=== PATIENT | female | born 1940 | race Caucasian/White ===

== ENCOUNTER 2016-11-19 07:05 | Day surgery (SDC) | payer MEDICARE, BC ==
[~2016-11-19 07:05] MED LIST: Buffered Lidocaine 1% SYR 3ML* 3 ML/SYR SYRINGE INTRADERM ONE; Buffered Lidocaine 1% SYRIN* 5 ML/SYR SYRINGE ONE; Clindamycin 900 MG IVPREMIX(* 900 MG/50 ML SDV IV ONE; Dexamethasone IV* 4 MG/ML 1 ML (4 MG) IV SLOW PU ONE; Dexamethasone IV* 4 MG/ML 1 ML (4 MG) ONE; EPINEPHrine AMP 1 MG/ML ONE; Famotidine IV* 10 MG/ML 2 ML (20 mg) IV ONE; Famotidine IV* 10 MG/ML 2 ML (20 mg) ONE
[2016-11-19] MEDS ORDERED: Propofol* 10 MG/ML 20 ML BTL IV PUSH ONE (08:19)
[2016-11-19] MEDS ORDERED: Atracurium* 10 MG/ML 10 ML VIAL ONE (08:19)
[2016-11-19] MEDS ORDERED: fentaNYL* 50 MCG/ML 2 ML VIAL (100 MCG VIAL) ONE (08:19)
[2016-11-19] MEDS ORDERED: Midazolam* 1 MG/ML 2 ML VIAL (2 MG) ONE (08:19)
[2016-11-19] MEDS ORDERED: Ondansetron INJ* 2 MG/ML VIAL ONE (08:19)
[2016-11-19] MEDS ORDERED: EPHEDrine (Pressors)* 50 MG/ML VIAL ONE (08:20)
[2016-11-19] MEDS ORDERED: Phenylephrine IV* 40 MCG/ML 10 ML SYRINGE ONE (08:20)
[2016-11-19] MEDS ORDERED: ROPIVACAINE 5 MG/ML 30 ML BTL (0.5%) ONE (08:20)
[2016-11-19] MEDS ORDERED: Lidocaine 2% PF * 5 ML VIAL ONE (08:43)
[2016-11-19] MEDS ORDERED: Ondansetron INJ* 2 MG/ML VIAL IV PRN (10:17)
[2016-11-19] MEDS ORDERED: fentaNYL* 50 MCG/ML 2 ML VIAL (100 MCG VIAL) IV PRN (10:17)
[2016-11-19] MEDS ORDERED: oxyCODONE/Acetamin 5/325 MG* TAB PO PRN (10:17)
[2016-11-19] MEDS ORDERED: Desflurane* 240 ML INH ONE (10:22)
[2016-11-19] MEDS ORDERED: Glycopyrrolate IV* 0.2 MG/ML 1 ML VIAL ONE (10:35)
[2016-11-19] MEDS ORDERED: Atropine 1MG/ML INJ* 1 ML VIAL ONE (10:35)
--- NOTE | 2016-11-19 13:09 | PN ---
Hospitalist Progress Note Brief consult note, full note to follow. Called to see patient due to bigeminy on tele. 76 yo F with hx of HTN, mitral valve prolapse, MDS, OA s/p rotator cuff repair found to have what was felt to be bigeminy on tele. Patient reports some shoulder numbness but otherwise feels well. No chest pain, palpitations, SOB. On exam, mild bradycardia, occasional ectopic beat but mostly normal rhythm, lungs CTA in anterior liu, abd soft, NTND, BS+, no LE edema. EKG shows sinus bradycardia with occasional PVCs. No further work-up needed at this time, patient is asymptomatic. Reports she has had an echo in the past, can f/u with cardiology to consider if she should have another to reassess mitral valve and other cardiac structures. Thank you for this consult.
[2016-11-19 15:15] VITALS: BP 111/51
--- NOTE | 2016-11-21 17:07 | OP ---
DATE OF OPERATION: 11/19/16 - [facility] DATE OF : 44 SURGEON: Saul Lou MD MARKETING DIRECTOR ASSISTED LIVING: ROD Evans ANESTHESIOLOGIST: Naseem Roy MD ANESTHESIA: General anesthesia, regional interscalene block anesthesia. PRE-OP DIAGNOSES: 1. Right shoulder rotator cuff tear, full-thickness, supraspinatus, infraspinatus. 2. Right shoulder subacromial impingement. 3. Right shoulder acromioclavicular joint arthritis. 4. Right shoulder possible biceps tendinosis. 5. Right shoulder mild glenohumeral joint arthritis. POST-OP DIAGNOSES: 1. Right shoulder rotator cuff tear, full-thickness, supraspinatus, infraspinatus. 2. Right shoulder subacromial impingement. 3. Right shoulder acromioclavicular joint arthritis. 4. Right shoulder biceps tendinosis. 5. Right shoulder mild glenohumeral joint osteoarthritis. OPERATIVE PROCEDURES: 1. Right shoulder arthroscopic rotator cuff repair, supraspinatus, infraspinatus, single row. 2. Right shoulder arthroscopic subacromial decompression. 3. Right shoulder arthroscopic distal clavicle resection. 4. Right shoulder arthroscopic release of biceps tendon. 5. Right shoulder arthroscopic limited debridement, including rotator interval tissue, biceps tissue and superior labrum. IV FLUIDS: See Anesthesia note. ESTIMATED BLOOD LOSS: Minimal. COMPLICATIONS: None. SPECIMEN: None. IMPLANTS: Healix 5.5 mm; Mitek Allen and Allen suture anchors x2. One suture anchor was double loaded and the other was triple loaded. 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 The patient's right shoulder hurts, so that she could not play pickleball. She was even having some right shoulder pain with swimming, although was able to continue swimming. She had nighttime pain disrupting her sleep. I treated the patient initially with a subacromial cortisone injection, which helped her symptoms of pain partially. The patient was also taking Tylenol Extra Strength for a while. Her primary care physician prescribed her Tylenol With Codeine, but that led to constipation, so she stopped taking that. The patient did physical therapy for 3 months without full relief of her symptoms. The patient had a history of a right total hip arthroplasty; mitral valve prolapse; myelodysplasia syndrome, a type of preleukemia; and diverticulosis with a history of excision of partial colon. When I first met the patient in clinic, she had been referred by a partner already having had an MRI performed. The MRI demonstrated full-thickness, full- width tears of the supra and infraspinatus, but retraction was just lateral to the apex. Fatty infiltration was significant, but I thought just less than 50% of the area of these two muscles on sagittal slices. The patient also had some degeneration on x-ray and MRI of the glenohumeral joint with the tiniest of osteophyte in the glenohumeral joint visible on MRI, but not x-ray and some trace glenohumeral joint narrowing on the x-ray as well as some partial thickness articular cartilage wear on MRI. Because the patient had retained strength with stress testing of the supraspinatus and infraspinatus when I first met her, and also because of her age, I made sure to fully attempt nonoperative management in this patient despite the full-thickness, full-width retracted tears. The patient responded insufficiently to nonoperative management. Especially, because of the patient's age, I shared with her my rotator cuff protocol to allow the patient to understand the intensity and the duration of the recovery required from a rotator cuff repair surgery. I e-mailed that protocol to her and she looked through it. I also told her that re-tears are more likely in an older population of rotator cuff repairs. In terms of timing of return to activities of daily living, I told her 3 months until she would use that right arm normally with activities of daily living around the house without heavy lifting. I told her 6 months until she could swim and 8 months for return to pickleball. The patient was interested in moving forward with surgery. She is very much aware of the risk of surgery, spontaneously mentioning that the worst risk of surgery or potential complications would certainly be . So, I felt comfortable that the patient understood the benefits, risks and potential complications of surgery. The patient is thin and well-muscled on exam. Her right shoulder range of motion was excellent, 180 degrees of forward flexion, 100 degrees of external and 90 degrees of internal range of motion. Positive Neer's and Rodrigez'. Pain and mild weakness with supraspinatus and infraspinatus stress testing on exam. Positive AC joint bicipital groove tenderness to palpation and mild pain with Speed's and Martindale's stress testing. Her x-rays preoperatively demonstrated an acromial humeral distance of 8.4 mm with what I thought was some trace elevation, and incongruity of the humeral head versus the glenoid. Much AC joint narrowing was present, but trace and glenohumeral joint narrowing was also present. An MRI done on 08/26/16, demonstrated full-thickness, full-width tears of the supra and infraspinatus. While there appeared to be some tissue lateral to the apex, it seemed as if some of this rotator cuff tissue was retracted further, possibly to the level of the glenoid or more medial. Fatty infiltration, I believe, to be just less than 50% of those muscles. Cartilage was still present in the glenohumeral joint, but there was a small osteophyte visible in the glenohumeral joint. Significant biceps tendinopathy was appreciated on MRI. DESCRIPTION OF PROCEDURE: Preoperative written consent was obtained. Operative extremity was marked in preoperative holding. Anesthesia performed an interscalene block in preoperative holding. The patient was taken back to the operating room and placed in supine on the operating room table. The patient was sedated and intubated. The patient was turned to the lateral decubitus position with the right side up. A chest roll was placed. All bony prominences padded. Santos bag was inflated. The right arm was placed in traction, approximately 15 degrees of forward flexion and 35 degrees of abduction. I used only 8 pounds of traction on her because of her small size. I prepped and draped right shoulder. Surgical timeout was performed. I placed a spinal needle into the glenohumeral joint from posterior. I infused 15 cc of normal saline. I then established posterior glenohumeral joint portal using standard technique. I entered arthroscope into the glenohumeral joint. I did diagnostic arthroscope. There were no unstable cartilage lesions, but there was clearly some grade 1 and 2 changes in the articular cartilage of both the humeral head and the glenoid, diffusely. The biceps was incredibly thickened and a tendinotic, with fraying throughout its length intra-articular. No loose bodies were encountered. A large rotator cuff tear of the supra and infraspinatus was visualized. I established an anterior glenohumeral joint portal under direct visualization. I entered arthroscopic shaver and used this to debride some of the biceps to better visualize the biceps. I also debrided some rotator interval inflamed synovium. Visualized subscapularis to be intact and not torn. I then proceeded to cut the biceps, just at its origin along the superior labrum, using a shaver and then VAPR. It was rather thickened to just use the arthroscopic scissors. I removed instruments and fluid from the glenohumeral joint. I entered subacromial space from posterior with the arthroscope and anterior with a plastic 5-mm disposable cannula with the irrigation hooked up to it. I established a lateral subacromial portal under direct visualization. I entered a shaver from lateral and debrided the bursitis in the subacromial space. Paid particular attention to the gutters. Visualized well the coracoacromial ligament, which I made sure to respect and not cut essentially any of during the procedure. This is because of concerns about the future risk of humeral head escape if the rotator cuff tear repair fails. I debrided the undersurface of the acromion with the VAPR. I then did a subacromial decompression with an arthroscopic mandi. Given her slight small size and age, I was very unaggressive with the subacromial decompression. I took perhaps only a 2-mm of lateral and anterior acromion, as much to open up additional spaces for a PRP like effect to improve healing of a rotator cuff repair. I recognized that there would be spurs at the acromion and distal clavicle to take later in the case. I next focused on the rotator cuff tear. I prepared the footprint with an arthroscopic shaver followed by an arthroscopic mandi. I had a light hand, purposely not debriding a much with the arthroscopic mandi in an older patient. I then evaluated the rotator cuff itself. As though there was a full-width tear of the supraspinatus that also encompassed much of the infraspinatus. It appeared crescent-shaped at first with the rotator cuff not retracted significantly. However, it was clear that this first layer I encountered was only the superior most part of the rotator cuff and that there had been an intralaminar split and that significant amount of rotator cuff tissue had retracted significantly. In fact, it had retracted to the level of the glenoid. I then created a new portal, posterolateral, that I did much of my viewing through with the arthroscope during the case. I spent much time during the rotator cuff repair either viewing through the posterolateral or lateral portal. I established an anterolateral portal under direct visualization. This was nicely in line with the tear itself. I then pulled the inferior lamina of the rotator cuff out to length. I did reach the footprints comfortably without excessive strain. I then entered a Tej wire passer from my posterior portal and I used it to pass a FiberWire #2 stitch through the inferior lamina of the rotator cuff tissue. I used this as a traction stitch, which my interior design assistant pulled traction on when I placed every single bite of stitch through the rotator cuff tendon later, to make sure that both the inferior and the superior laminas of the rotator cuff tendon were at the appropriate length- tension relationship. I next placed a 7-mm plastic Mitek cannula through my anterolateral portal. I was going to pass the Expressew suture passer through this portal. My tear still appeared crescent shaped and so my plan was for a single or a double row repair. I next placed a double-loaded suture anchor in the anterior section of the rotator cuff footprint, along its medial aspect. I placed in this location because I knew that this is where the best bone and best purchase for the anchor would be. I punched with the punched with the punch appropriate for the 5.5-mm anchor. I got good bite. I then used an Expressew to pass the sutures from this double-loaded anchor and I did not yet tie my horizontal mattress stitches. I docked those sutures anteriorly. I then placed another anchor, more posterior along the medial aspect of the footprint. With this anchor, I used a triple-loaded anchor. I also decided to use the 4.5-mm punch for a 5.5-mm anchor, just to be safe. Again, I got good bite with this second anchor. I used the Expressew to pass horizontal mattress stitches, but did not yet tie them. With the final stitch, I used a Tej suture passer from posterior to pass the suture through the most posterior part of the rotator cuff involved in the tear and I made that a simple stitch. I next tied all my knots. The first 4 stitches were horizontal mattress and the fifth knot was a simple stitch. I next probed my repair. It appeared excellent with good spot welding along the length of the repair. There was a tiny bits of fish-mouth, perhaps a two-thirds of the way along the repair from the anterior to posterior. Given my desire for any additional fixation to help with this repair, I next attempted a lateral row. I loaded 4 sutures into a lateral row anchor. I then used the 4.5-mm punch laterally. The punch went in easily with just my hand pushing it. No mallet needed. This made me think that the bone was exceptionally soft laterally. I tried one more rotation further distal. This was even softer. This was not entirely surprising as my preoperative review of the MRI had showed a cyst about the lateral rotator cuff footprint. However, that cyst did not run the length of the bone from anterior to posterior, I am somewhat surprised, but this is likely explained by the patient's age. Because of the soft bone laterally, I did not want to insert a lateral row anchor that might pull out. Therefore, I just cut the sutures of the medial row unless this is single row repair. Moving the humerus and viewing the repair from both posterolateral and lateral, it appeared as though we had a nice rotator cuff repair. I then moved my arthroscope to the posterior portal and addressed the AC joint. There were osteophytes on the acromial and clavicular side of the AC joint. I first debrided this area with a VAPR and a shaver to remove the bursitic tissue. Then I used the shaver from lateral and then from anterior to debride the undersurface of the acromion anteromedially as well as I removed 8 mm of the distal clavicle. I viewed all 4 quadrants of the distal clavicle and was satisfied with adequate decompression. Removed melvin and fluid from subacromial space. Closed skin incisions with [id number], 12 and 16 stitches using nylon 4-0 suture. Xeroform, 4x4s, ABDs, foam tape. Abduction pillow and sling applied and a cooling unit. The patient was turned to the supine position, awakened and extubated. The patient was brought to the recovery room. DISPOSITION: In the recovery room, the patient was noted on telemetry to have some occasional ventricular driven beats. At times this was a ventricular bigeminy, at times there were perhaps 3 to 4 beats in a row ventricular in origin. The patient was asymptomatic with no chest pain, shortness of breath or sensation of heart palpitations. I called a hospitalist consult. The patient had an EKG and the hospitalist physician was comfortable with the patient's discharge home without any further intervention. The assumption was that this is the patient's baseline. The patient will follow up with Cardiology as an outpatient. The patient and her were spoken to PACU. She was given Percocet for pain control and aspirin 325 mg p.o. b.i.d. x2 weeks for DVT prophylaxis. The patient will follow up with me 10 to 14 days postoperative and we will hold off on physical therapy until after that visit, but will come out of her sling several times a day to move her elbow, wrist and fingers. [id number]/CPS #: [id number] MTDD
== END 2016-11-19 15:45 | disposition home or self-care (01) ==
LOC: OR 07:05
PROVIDERS: ATTEND Orthopaedic Surgery
DX: M75.101 Unspecified rotator cuff tear or rupture of right shoulder, not specified as traumatic (principal); M19.011 Primary osteoarthritis, right shoulder; M75.41 Impingement syndrome of right shoulder; M75.21 Bicipital tendinitis, right shoulder; I34.1 Nonrheumatic mitral (valve) prolapse; I10 Essential (primary) hypertension; D46.9 Myelodysplastic syndrome, unspecified
CPT/HCPCS: 93005; A9270-GY; J0171; J0461; J1100; J2250; J2405; J2704; J2795; J3010

== ENCOUNTER 2018-05-06 11:04 | Emergency (ER) | payer MEDICARE, BC ==
--- OUTSIDE RECORDS SUMMARY | 2018-05-06 11:31 | XMS REPORT | Continuity of Care Document ---
:1940 External Reference #:[id number] Author Name Abdiel Ricardo Address [address] [place] [id number] Care Team Providers Name Role Phone HCP/LW on file Primary Care Physician Unavailable Payers Type Date Identification Numbers Payment Provider Subscriber Effective: Policy Number: [id number] [place] [employer] Courtney Brooks 2007 Services PayID: [id number] [address] [place] [address] Effective: 2018 Policy Number: [place] Ind/Ppo/Hmo/Pos Courtney Brooks [id number] PayID: [id number] [address] [address] [place] [address] Advance Directives Description No Information Available Problems Date Description Provider Status Onset: 06/08/2017 Myelodysplastic syndrome (clinical) Garland Funez M.D. Active Onset: 06/08/2017 Spinal stenosis in cervical region Garland Funez M.D. Active Onset: 06/17/2017 Chronic kidney disease stage 3 Garland Funez M.D. Active Onset: 06/17/2017 Essential hypertension Garland Funez M.D. Active Onset: 06/17/2017 Generalized anxiety disorder Garland Funez M.D. 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 Tobacco Use Reviewed: 12/14/16 Never Smoked Cigarettes Smoking Status Reviewed: 04/27/18 Never Smoked Cigarettes ETOH Use 12/14/2016 Current Alcohol Use: "a couple glasses a Daily day" of wine (total ~16oz/day) and has been doing this for a long time Tobacco Use Start: Unknown Patient has never smoked Exercise Type/Frequency 12/14/2016 Exercises regularly incl swimming, pickle ball, lots of walking, gardening Age [address][age] [place] 21 Years Old Allergies, Adverse Reactions, Alerts Date Description Reaction Status Severity Comments 11/15/2016 Cardizem Active photo dermatitis 11/15/2016 Ampicillin Active itching 11/15/2016 Tramadol Active itching 11/15/2016 Vancomycin Active itching 03/21/2018 Keflex Active itching 03/21/2018 Doxycycline Active blisters 04/27/2018 Furosemide Itching, rash Active Moderate Medications Medication Date Status Form Strength Qnty SIG Indications Ordering Provider Walker With A Misc 1units I48.92 Silcoff, Platform 2018 Yassine Haque Amiodarone HCL 04/23/ Active Tablets 200mg 1/2 tablet I48.92 Dee Dee, 2017 by mouth Garland 2x/day for M.D. heart rhythm control Warfarin Sodium 04/12/ Active Tablets 1mg as directed Unknown 2017 Antioxidant 04/12/ Active Capsules one cap po Unknown 2017 daily Metoprolol 04/12/ Active Tablets 25mg take 1/2 Unknown Tartrate 2018 tablet by mouth twice a day Sertraline HCL 02/14/ Active Tablets 100mg 90tabs 1 by mouth F41.1 Dee Dee, 2017 every day soha Haque M.DLaura Timolol Maleate 02/10/ Active GFS 0.5% 1 drop to [place] Ophthalmic Gel 2018 the Left , Forming eye daily Luz Elena connor MD Latanoprost 10/25/ Active Solution 0.005% Instill 1 Unknown 2017 Drop In Each Eye AT Bedtime Amiodarone HCL 04/23/ Hx Tablets 200mg 200 mg by I48.92 Unknown 2018 - mouth twice 04/24/ daily 2018 Hydroxyzine HCL 04/15/ Hx Tablets 25mg 45tabs 1-2 tabs by L50.9 Dee Dee , 2017 - mouth q-6 Garland, 10/24/ hours for M.D. 2018 rash, can cause drowsiness. Amiodarone HCL 04/12/ Hx Tablets 400mg take 1 tab I48.92 Unknown 2018 - po 3x/day 04/23/ for 3 days. 2018 Then 400 mg 2x/day for 7 days, then 1/2 tab twice daily Furosemide 04/12/ Hx Tablets 40mg one tab Unknown 2018 - daily for 5 2017 Potassium /10/ Hx Tablets ER 20Meq one tab po Unknown Chloride Jerrica 2018 - x 5 days ER 2017 Aspirin Adult 04/12/ Hx Tablets DR 81mg 1 by mouth Unknown Low Dose 2018 - every day 2017 Vitamin B 03/26/ Hx Capsule 1 by mouth Unknown Complex 2018 - once daily 2017 Metoprolol 03/13/ Hx Tablets ER 25mg 25mg qd to Davidenko Succinate ER 2018 - 24HR lower pulse , Darrel 2017 Eliquis 03/13/ Hx Tablets 5mg bid Davidenko 2018 - , Darrel 2017 Cephalexin 03/12/ Hx Capsules 500mg 28caps 1 capsule L03.115 Unknown 2018 - by mouth 03/19/ every 6 2018 hours for skin infection on leg Triamcinolone 02/20/ Hx Cream 0.1% 80gm apply to R21 Dee Dee Acetonide 2018 - affected Garland 03/20/ areas on M.D. 2018 arms and legs 2x/day for 2weeks, then use as needed only needed L29.9 Sertraline HCL 02/10/2018 - Hx Tablets 50mg 2 by mouth F41.1 Dee Dee, 02/14/2018 every day; soha Haque mood M.D. PT For R Leg Pain 02/08/2018 - Hx please M79.604 Dee Dee, 04/14/2018 evaluate Garland, and treat M.D. Benicar HCT 12/15/2017 - Hx Tablets 40-25mg take one I10 Unknown 04/14/2018 tablet by mouth every day for high blood pressure Llysene (OTC) 12/15/2017 - Hx one po Unknown 03/12/2018 daily in summer to prevent cold sores Benadryl (OTC) 12/15/2017 - Hx one po Unknown 03/20/2018 every other day prn for itching B Complex 06/08/2017 - Hx Tablets 1 by mouth G47.62 Silcocharly, 03/20/2018 once daily Garland, for muscle M.D. cramps; stop after a couple of months if not helpful Acetaminophen 06/08/2017 - Hx Tablets 500mg 2 by mouth M25.50 Silcocharly, Extra Strength 03/12/2018 up to Garland, 4x/day as M.D. needed for pain Actonel 12/13/2016 - Hx 1 weekly M85.80 Unknown 12/14/2016 Multivitamin 11/14/2016 - Hx Tablets 1 capful Unknown Adult 04/14/2018 daily [place] 3 11/14/2016 - Hx Capsules daily Unknown 04/14/2018 Opc-3 11/14/2016 - Hx 1 capful Unknown 04/14/2018 daily Tylenol Extra 11/14/2016 - Hx Tablets 500mg bid Unknown Strength 06/16/2017 Biocal 11/14/2016 - Hx Capsules daily Unknown 04/14/2018 Risedronate 10/22/2016 - Hx Tablets 35mg 1 per week M85.88 Unknown Sodium 12/14/2016 as directed Sertraline HCL 09/30/2016 - Hx Tablets 50mg 90ta 1 tablet by F41.1 Dee Dee, 02/10/2018 bs mouth Garland, daily; for M.D. mood Benicar HCT 03/19/2016 - Hx Tablets 20-12.5m 1 tablet po I10 Unknown 12/15/2017 g daily Metoprolol - Hx Tablets 25mg Unknown Tartrate 04/14/2018 Medications Administered in Office Medication Date Status Form Strength Qnty SIG Indications Ordering Provider injection, Administered Injection mathew Funez, 10 mg 018 Yassine Haque Immunizations CPT Code Status Date Vaccine Lot # [id number] Given 03/13/2018 Influenza Vaccine Split Virus Preservative Free Im [id number] Use [id number] Given 03/11/2018 Adacel or Boostrix, TDaP 00636 Given 06/08/2017 Pneumococcal Immunization [id number] 16423 Given 04/07/2017 Influenza Virus Vaccine, Quadrivalent, Split, [id number] Preservative Free 51915 Given 05/15/2015 Prevnar 13 85437 Given 11/05/2009 Zostavax [id number] Given 05/05/2009 Adacel or Boostrix, TDaP Vital Signs Date Vital Result Comment 04/27/2018 5:03pm BP Systolic 124 mmHg BP Diastolic 66 mmHg Heart Rate 63 /min O2 % BldC Oximetry 92 % then 87,88 Weight 123.00 lb sneakers, sweatshirt on, (at home 116) 04/19/2018 4:14pm BP Systolic 116 mmHg BP Diastolic 70 mmHg Respiratory Rate 14 /min not laboured 04/15/2018 10:20am BP Systolic 120 mmHg BP Diastolic 80 mmHg Weight 116.00 lb with sneakers 03/27/2018 3:08pm BP Systolic 108 mmHg BP Diastolic 60 mmHg Body Temperature 97.9 F 03/21/2018 11:09am BP Systolic 122 mmHg BP Diastolic 62 mmHg 03/13/2018 9:39am BP Systolic 120 mmHg BP Diastolic 78 mmHg Body Temperature 98.0 F Weight 113.00 lb w/sneakers 02/20/2018 5:23pm BP Systolic 118 mmHg BP Diastolic 49 mmHg Heart Rate 48 /min Body Temperature 98.1 F 02/14/2018 2:19pm BP Systolic 107 mmHg BP Diastolic 47 mmHg Heart Rate 52 /min O2 % BldC Oximetry 97 % Weight 110.00 lb w/shoes 12/16/2017 1:08pm BP Systolic 118 mmHg BP Diastolic 60 mmHg Height 63.5 inches 5'3.50" with sneakers Weight 112.00 lb with sneakers BMI (Body Mass Index) 19.5 kg/m2 06/17/2017 1:29pm BP Systolic 106 mmHg BP Diastolic 68 mmHg 06/08/2017 2:19pm BP Systolic 106 mmHg BP Diastolic 58 mmHg Heart Rate 68 /min reg w/ frequent berto beats Height 62.25 inches 5'2.25" Weight 107.00 lb BMI (Body Mass Index) 19.4 kg/m2 12/14/2016 11:53am BP Systolic 104 mmHg BP Diastolic 66 mmHg Height 63.75 inches 5'3.75" w/shoes Weight 103.00 lb with shoes BMI (Body Mass Index) 17.8 kg/m2 11/15/2016 4:23pm BP Systolic 108 mmHg BP Diastolic 56 mmHg Height 62 inches 5'2" Weight 108.00 lb BMI (Body Mass Index) 19.8 kg/m2 Results Test Date Facility Test Result H/L Range Note Xray 04/27/2018 [facility] X-Ray, Chest, 2 <pending> Views Protime W/ 04/24/2018 [facility]International 2.2 Inr(Add V58.61) Normalized Protime W/ 04/21/2018 [facility]International 1.8 Inr(Add V58.61) Normalized Protime W/ 04/17/2018 [facility]International 1.6 Inr(Add V58.61) Normalized Protime W/ 04/14/2018 [facility] #Prothrombin Time <pending> Inr(Add V58.61) #International Normalized 2.4 Basic Metabolic Panel 03/27/2018 [facility] [place] Sodium 132 mmol/L Low 135 -145 [phone] Chloride 98 mmol/L Low 101-111 Co2 Carbon Dioxide 27 mmol/L 22-32 Glucose 83 mg/dL 70-100 Blood Urea Nitrogen 19 mg/dL 6-24 Creatinine 0.85 mg/dL 0.51-0.95 BUN/Creatinine Ratio 22.4 High 8-20 Calcium 9.5 mg/dL 8.6-10.3 Egfr Non- 65.0 >60 Egfr 78.7 >60 1 Potassium 5.2 mmol/L High 3.5-5.0 Anion Gap 7 mmol/L 2-11 Laboratory test 03/21/2018 [facility] [place] Body Fluid None Seen None Seen 2 finding [phone] Crystals CBS W/Automated 03/11/2018 [facility]. White Blood 5.2 K/uL 3.1-10.7 3 Diff LABORATORY Count [phone] Red Blood Count 3.58 M/uL Low 3.90-5.40 Hemoglobin 11.9 gm/dL 11.6-15.8 Hematocrit 33.9 % Low 36.0-46.1 Mean Cell Volume 94.7 fl 80.9-99.0 Mean Corpuscular HGB 33.2 pg High 25.9-32.7 Mean Corpuscular HGB Conc 35.1 g/dL High 30.8-34.3 Platelet Count 228 K/uL 155-360 Red Cell Distri Width SD 41.7 fl 3-47 Red Cell Distri Width %CV 12.5 % 11.7-14.4 Mean Platelet Volume 9.9 fL 8.9-12.4 Neut% 73.3 % High 40.4-72.8 Lymph % 17.9 % Low 20.0-42.0 [place] % 6.9 % 4.3-13.2 Eo% 1.5 % 0.0-6.6 Bas% 0.4 % 0.0-1.1 Neut# 3.80 K/uL 1.8-7.0 Lymph # 0.93 K/uL Low 1.0-4.0 [place] # 0.36 K/uL 0.3-0.9 Eos # 0.08 K/uL 0.0-0.5 Baso # 0.02 K/uL 0.0-0.1 Comprehensive Metabolic 03/11/2018 [facility]. Glucose 97 mg/ dL 74-106 Panel LABORATORY [phone] BUN 15 mg/dL 7-18 Creatinine 0.8 mg/dL 0.6-1.3 Glom Filtration Rate, Estimate >60 mL/min >60 If >60 mL/min >60 4 BUN/Creat 18.7 ratio Sodium 127 mmol/L Low 136-145 Potassium 3.8 mmol/L 3.5-5.1 Chloride 92 mmol/L Low 98-107 Carbon Dioxide 28 mmol/L 21-32 Anion Gap 7 mEq/L Low 8-16 Calcium 8.9 mg/dL 8.5-10.1 Total Protein 7.5 g/dL 6.4-8.2 Albumin 4.3 g/dL 3.4-5.0 Globulin 3.2 g/dL 1.9-4.3 Alb/Glob 1.3 ratio Bilirubin,Total 0.7 mg/dL 0.2-1.0 Sgot/Ast 32 U/L 15-37 SGPT/Alt 27 U/L 12-78 Alkaline Phosphatase 77 U/L 45-117 Laboratory test 03/11/2018 [facility]. C-Reactive 34.1 High < 3.0 finding LABORATORY Protein,Quant mg/L [phone] Creatinine 02/14/2018 [facility] [place] Creatinine 0.83 0.51-0.9 [phone] mg/dL 5 Egfr Non- 67.0 >60 Egfr 81.1 >60 5 Basic Metabolic Panel 01/31/2018 [facility]. Glucose 94 mg/dL 74-106 6 LABORATORY [phone] BUN 34 mg/dL High 7-18 Creatinine 1.7 mg/dL High 0.6-1.3 Glom Filtration Rate, Estimate 31 mL/min >60 If 38 mL/min >60 7 BUN/Creat 20.0 ratio Sodium 136 mmol/L 136-145 Potassium 3.9 mmol/L 3.5-5.1 Chloride 100 mmol/L 98-107 Carbon Dioxide 26 mmol/L 21-32 Anion Gap 10 mEq/L 8-16 Calcium 8.3 mg/dL Low 8.5-10.1 CBC 01/31/2018 [facility] White Blood Count 5.1 K/uL 3.1- 10.7 LABORATORY [phone] Red Blood Count 3.21 M/uL Low 3.90-5.40 Hemoglobin 10.8 gm/dL Low 11.6-15.8 Hematocrit 31.8 % Low 36.0-46.1 Mean Cell Volume 99.1 fl High 80.9-99.0 Mean Corpuscular HGB 33.6 pg High 25.9-32.7 Mean Corpuscular HGB Conc 34.0 g/dL 30.8-34.3 Platelet Count 202 K/uL 155-360 Red Cell Distri Width %CV 12.6 % 11.7-14.4 Mean Platelet Volume 9.7 fL 8.9-12.4 Aot Request 01/31/2018 [facility] Aot Request Test(s) added 8 LABORATORY [phone] Tests to be added: LFT's Aot Request 01/31/2018 [facility] Aot Request Test(s) added 9 LABORATORY [phone] Tests to be added: troponin CBS W/Automated 01/30/2018 [facility] White Blood 3.2 K/uL 3.1-10.7 Diff LABORATORY Count [phone] Red Blood Count 4.01 M/uL 3.90-5.40 Hemoglobin 13.5 gm/dL 11.6-15.8 Hematocrit 38.8 % 36.0-46.1 Mean Cell Volume 96.8 fl 80.9-99.0 Mean Corpuscular HGB 33.7 pg High 25.9-32.7 Mean Corpuscular HGB Conc 34.8 g/dL High 30.8-34.3 Platelet Count 259 K/uL 155-360 Red Cell Distri Width SD 42.9 fl 3-47 Red Cell Distri Width %CV 12.5 % 11.7-14.4 Mean Platelet Volume 9.8 fL 8.9-12.4 Neut% 61.9 % 40.4-72.8 Lymph % 27.0 % 20.0-42.0 [place] % 6.8 % 4.3-13.2 Eo% 3.1 % 0.0-6.6 Bas% 1.2 % High 0.0-1.1 Neut# 1.99 K/uL 1.8-7.0 Lymph # 0.87 K/uL Low 1.0-4.0 [place] # 0.22 K/uL Low 0.3-0.9 Eos # 0.10 K/uL 0.0-0.5 Baso # 0.04 K/uL 0.0-0.1 Laboratory test 01/30/2018 [facility]. Troponin-I 0.030 ng/mL 10 finding LABORATORY [phone] Laboratory test 01/30/2018 [facility]. Act Partial > 150.0 High 23.4- 11 finding LABORATORY Thrombo Time seconds 35.0 [phone] Laboratory test 01/30/2018 [facility]. Troponin-I 0.044 ng/mL 12 finding LABORATORY [phone] CBS W/Automated 01/29/2018 [facility]. White Blood 4.4 K/uL 3.1-1 13 Diff LABORATORY Count 0.7 [phone] Red Blood Count 3.68 M/uL Low 3.90-5.40 Hemoglobin 12.4 gm/dL 11.6-15.8 Hematocrit 36.3 % 36.0-46.1 Mean Cell Volume 98.6 fl 80.9-99.0 Mean Corpuscular HGB 33.7 pg High 25.9-32.7 Mean Corpuscular HGB Conc 34.2 g/dL 30.8-34.3 Platelet Count 256 K/uL 155-360 Red Cell Distri Width SD 43.0 fl 3-47 Red Cell Distri Width %CV 12.5 % 11.7-14.4 Mean Platelet Volume 10.0 fL 8.9-12.4 Neut% 62.3 % 40.4-72.8 Lymph % 26.6 % 20.0-42.0 [place] % 6.8 % 4.3-13.2 Eo% 3.6 % 0.0-6.6 Bas% 0.7 % 0.0-1.1 Neut# 2.77 K/uL 1.8-7.0 Lymph # 1.18 K/uL 1.0-4.0 [place] # 0.30 K/uL 0.3-0.9 Eos # 0.16 K/uL 0.0-0.5 Baso # 0.03 K/uL 0.0-0.1 Aot Request 01/29/2018 [facility] Aot Request Test(s) added 14, 15 LABORATORY [phone] Tests to be added: Lipase Aot Request 01/29/2018 [facility] Aot Request Test(s) added 16, 17 LABORATORY [phone] Tests to be added: BNP, D-Dimer, CP <SEE NOTE> 18 Laboratory test 01/29/2018 [facility] Troponin-I 0.050 ng/mL 19 finding LABORATORY [phone] Hepatitis 01/29/2018 [facility] Hepatitis A Negative Negative Evaluation LABORATORY Antibody IgM [phone] HBsAg Screen [Ref Lab] Negative Negative Hepatitis B Core IgM Negative Negative HCV Signal/Cutoff ratio < 0.1 s/corat 0.0-0.9 20 Laboratory test 01/29/2018 [facility] D-Dimer, 3.35 ug/mL High 21 finding LABORATORY Quantitative [phone] Urine Micro 12/16/2017 In House [facility] WBC - Inhouse Ua RBC - Ua Casts - Ua Epi - Ua Other - Ua Glucose - Ua Bilirubin - Ua Ketones - Ua Specific O'Brien 1.010 Ua Blood - Ua PH 5.0 Ua Protein - Ua Urobilinogen - Ua Nitrite - Ua Leukocytes - Creatinine Clearance 12/07/2017 [facility] [place] Urine Collection Time 24 hr [phone] Urine Total Volume 1750 mL Urine Random Creatinine 45.68 mg/dL Creatinine 0.97 mg/dL High 0.51-0.95 Creatinine Clearance 57 mL/min Low 88-128 Pthi 06/13/2017 [facility] [place] Calcium (PTH Intact) 10.3 mg/dL 8.6-10.3 [phone] PTH Intact 2.0 pmol/L 1.3-9.3 Laboratory test 06/13/2017 [facility] [place] Vitamin D 69.6 ng/mL High 20- 50 finding [phone] Total 25(Oh) CBC Auto Diff 06/13/2017 [facility] [place] White Blood 3.6 10^3/uL 3.5- 10.8 [phone] Count Red Blood Count 3.57 10^6/uL Low 4.0-5.4 Hemoglobin 11.8 g/dL Low 12.0-16.0 Hematocrit 36 % 35-47 Mean Corpuscular Volume 100 fL High 80-97 Mean Corpuscular Hemoglobin 33 pg High 27-31 Mean Corpuscular HGB Conc 33 g/dL 31-36 Red Cell Distribution Width 13 % 10.5-15 Platelet Count 197 10^3/uL 150-450 Mean Platelet Volume 9 um3 7.4-10.4 Abs Neutrophils 2.5 10^3/uL 1.5-7.7 Abs Lymphocytes 0.9 10^3/uL Low 1.0-4.8 Abs Monocytes 0.2 10^3/uL 0-0.8 Abs Eosinophils 0.1 10^3/uL 0-0.6 Abs Basophils 0 10^3/uL 0-0.2 Abs Nucleated RBC 0.01 10^3/uL Granulocyte % 67.9 % 38-83 Lymphocyte % 23.8 % Low 25-47 Monocyte % 5.5 % 1-9 Eosinophil % 1.8 % 0-6 Basophil % 1.0 % 0-2 Nucleated Red Blood Cells % 0.2 Laboratory test finding 06/13/2017 [facility] [place] Phosphorus 4.5 mg/dL 2.5-5.0 [phone] Iron & Iron Binding 06/13/2017 [facility] [place] Iron 89 g/dL 50-212 Capacity [phone] Unsaturated Iron Binding 297 g/dL Total Iron Binding Capacity 386 g/dL 250-450 % Iron Saturation 23 % 15-55 Creatinine Clearance 06/13/2017 [facility] [place] Creatinine 1.14 mg/dL High 0.51-0.95 [phone] Urine Collection Time 24 Urine Total Volume 1300 mL Urine Random Creatinine 56.27 mg/dL Creatinine Clearance 45 mL/min Low 88-128 Basic Metabolic Panel 06/13/2017 [facility] [place] Sodium 138 mmol/L 133- 145 [phone] Potassium 5.0 mmol/L 3.5-5.0 Chloride 105 mmol/L 101-111 Co2 Carbon Dioxide 27 mmol/L 22-32 Anion Gap 6 mmol/L 2-11 Glucose 92 mg/dL 70-100 Blood Urea Nitrogen 28 mg/dL High 6-24 Creatinine 1.12 mg/dL High 0.51-0.95 BUN/Creatinine Ratio 25.0 High 8-20 Calcium 9.8 mg/dL 8.6-10.3 Egfr Non- 47.4 >60 Egfr 61.0 >60 22 1 Because ethnic data is not always readily available, this report includes an eGFR for both -Americans and non- Americans. The National Kidney Disease Education Program (NKDEP) does not endorse the use of the MDRD equation for patients that are not between the ages of 18 and 70, are , have extremes of body size, muscle mass, or nutritional status, or are non- or non-. According to the National Kidney Foundation, irrespective of diagnosis, the stage of the disease is based on the level of kidney function: Stage Description GFR(mL/min/1.73 m(2)) 1 Kidney damage with normal or decreased GFR 90 2 Kidney damage with mild decrease in GFR 60-89 3 Moderate decrease in GFR 30-59 4 Severe decrease in GFR 15-29 5 Kidney failure <15 (or dialysis) 2 [id number] What is the body fluid source?: Synovial (Joint) Fluid 3 LOWER R LEG SWOLLEN 4 Note: Persistent reduction for 3 months or more in an eGFR <60 mL/min/1.73 m2 defines CKD. Patients with eGFR values >/=60 mL/min/1.73 m2 may also have CKD if evidence of persistent proteinuria is present. The original MDRD equation for estimated GFR is not valid for patients less than 18 years of age. Additional information may be found at www.kdoqi.org. 5 Because ethnic data is not always readily available, this report includes an eGFR for both -Americans and non- Americans. The National Kidney Disease Education Program (NKDEP) does not endorse the use of the MDRD equation for patients that are not between the ages of 18 and 70, are , have extremes of body size, muscle mass, or nutritional status, or are non- or non-. According to the National Kidney Foundation, irrespective of diagnosis, the stage of the disease is based on the level of kidney function: Stage Description GFR(mL/min/1.73 m(2)) 1 Kidney damage with normal or decreased GFR 90 2 Kidney damage with mild decrease in GFR 60-89 3 Moderate decrease in GFR 30-59 4 Severe decrease in GFR 15-29 5 Kidney failure <15 (or dialysis) 6 CHEST PAIN 7 Note: Persistent reduction for 3 months or more in an eGFR <60 mL/min/1.73 m2 defines CKD. Patients with eGFR values >/=60 mL/min/1.73 m2 may also have CKD if evidence of persistent proteinuria is present. The original MDRD equation for estimated GFR is not valid for patients less than 18 years of age. Additional information may be found at www.kdoqi.org. 8 Tests: LFT's Instructions: 9 Tests: troponin Instructions: 10 0.0 - 0.045 ng/mL: Normal 0.046 - 0.5 ng/mL: Suggestive 0.6 - 1.5 ng/mL: Consistent 11 CALLED PTT TO JOSE ANTONIO Miller AT 1036 01/30/18 by LAB.ELR OKAY TO DRAW AT 740 AM WITH OTHER DRAWS Is patient on heparin protocol? Y Is patient on anticoagulants? None OK To Combine Draws Per RN 12 0.0 - 0.045 ng/mL: Normal 0.046 - 0.5 ng/mL: Suggestive 0.6 - 1.5 ng/mL: Consistent 13 SOB, LIGHT HEADED, WEAKNESS CHEST PAIN 14 SOB, LIGHT HEADED, WEAKNESS 15 Tests: Lipase Instructions: 16 CHEST PAIN 17 Tests: BNP, D-Dimer, CPK, CRP Instructions: 18 BNP, D-Dimer, CPK, CRP 19 0.0 - 0.045 ng/mL: Normal 0.046 - 0.5 ng/mL: Suggestive 0.6 - 1.5 ng/mL: Consistent 20 INFCE Result Units: s/co ratio Negative: < 0.8 Indeterminate: 0.8 - 0.9 Positive: > 0.9 The CDC recommends that a positive HCV antibody result be followed up with a HCV Nucleic Acid Amplification test (728325). Performed at: - [facility] [id number] Regional Account Executive: Emily Lackey MD, Phone: [phone] 21 <=0.49 ug/mL - Low likelihood of DIC, DVT or Pulmonary Embolism >0.49 ug/mL - Additional testing should be done to rule out DIC, DVT, or Pulmonary embolism as clinically indicated. ([facility] has established a 97.89% negative predictive value for thrombotic disease when a cutoff value of 0.5 ug/mL is used.) 22 Because ethnic data is not always readily available, this report includes an eGFR for both -Americans and non- Americans. The National Kidney Disease Education Program (NKDEP) does not endorse the use of the MDRD equation for patients that are not between the ages of 18 and 70, are , have extremes of body size, muscle mass, or nutritional status, or are non- or non-. According to the National Kidney Foundation, irrespective of diagnosis, the stage of the disease is based on the level of kidney function: Stage Description GFR(mL/min/1.73 m(2)) 1 Kidney damage with normal or decreased GFR 90 2 Kidney damage with mild decrease in GFR 60-89 3 Moderate decrease in GFR 30-59 4 Severe decrease in GFR 15-29 5 Kidney failure <15 (or dialysis) Procedures Date Code Description Status 04/27/2018 88672 Electrocardiogram Complete Completed 04/27/2018 58560 X-Ray Chest 2 V Completed 04/24/2018 48180 Anticoagulant MGMT For Patient Taking Warfarin, Inc Completed Review & Intr 04/21/2018 84600 Anticoagulant MGMT For Patient Taking Warfarin, Inc Completed Review & Intr 04/17/2018 00262 Anticoagulant MGMT For Patient Taking Warfarin, Inc Completed Review & Intr 03/21/2018 03109 X-Ray Knee, Complete Completed 03/21/2018 95747 Inject/Drain Joint/Bursa Major Completed 12/03/2007 11588543 Colonoscopy Completed Encounters Type Date Location Provider Dx Diagnosis Office Visit 04/19/2018 Main Office Garland Funez, R60.1 Generalized edema 3:30p M.D. L50.9 Urticaria, unspecified Z79.899 Other nursing home (current) drug therapy R43.9 Unspecified disturbances of smell and taste I34.9 Nonrheumatic mitral valve disorder, unspecified Office Visit 04/15/2018 9:45a Main Office Abdiel Ricardo R60.0 Localized edema I34.9 Nonrheumatic mitral valve disorder, unspecified L50.9 Urticaria, unspecified I48.92 Unspecified atrial flutter Office Visit 03/27/2018 3:00p Main Office Abdiel Ricardo R60.0 Localized edema L03.115 Cellulitis of right lower limb Office Visit 03/21/2018 11:15a Main Office Garland Funez, M25.561 Pain in right M.D. knee M25.461 Effusion, right knee I34.0 Nonrheumatic mitral (valve) insufficiency M17.11 Unilateral primary osteoarthritis, right knee Office Visit 03/13/2018 9:30a Main Office Garland Funez, L03.115 Cellulitis of M.D. right lower limb E87.1 Hypo-osmolality and hyponatremia Z23 Encounter for immunization Office Visit 02/20/2018 4:45p Main Office Garland Funez, R21 Rash and other M.D. nonspecific skin eruption L29.9 Pruritus, unspecified I34.0 Nonrheumatic mitral (valve) insufficiency Office Visit 02/14/2018 2:00p Main Office Garland Funez, F41.1 Generalized anxiety M.D. disorder I10 Essential (primary) hypertension R06.00 Dyspnea, unspecified N18.3 Chronic kidney disease, stage 3 (moderate) I34.0 Nonrheumatic mitral (valve) insufficiency Z71.89 Other specified counseling Office Visit 12/16/2017 12:55p Main Office Garland Funez, I10 Essential (primary) M.D. 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 Office Visit 06/08/2017 2:00p Main Office Garland Funez, Z00.01 Encounter for M.DLaura general adult medical exam w abnormal findings Z12.31 Encntr screen mammogram for malignant neoplasm of breast M54.2 Cervicalgia M48.02 Spinal stenosis, cervical region D46.9 Myelodysplastic syndrome, unspecified G47.62 Sleep related leg cramps M25.50 Pain in unspecified joint M25.511 Pain in right shoulder Z23 Encounter for immunization Z41.8 Encntr for oth proc for purpose oth [facility] Z71.89 Other specified counseling Office Visit 12/14/2016 11:15a Main Office Garland Funez, M85.80 Oth disrd of bone M.DLaura density and structure, unspecified site N18.3 Chronic kidney disease, stage 3 (moderate) I10 Essential (primary) hypertension F41.1 Generalized anxiety disorder D46.9 Myelodysplastic syndrome, unspecified Z71.89 Other specified counseling Plan of Treatment Future Appointment(s):06/20/2018 1:30 pm - Garland Funez M.D. at Main [id number]/27/2018 - Maisha Us, P.A.I48.92 Unspecified atrial flutterNew Medication:Walker With A Platform -R60.0 Localized uutycO14.83 Other dklnnymU82.9 Nonrheumatic mitral valve disorder, unspecifiedNew Medication: - I50.9 Heart failure, unspecifiedComments:Xray in this office showed fluid in lungs bilaterallyFollow up:[facility]
--- OUTSIDE RECORDS SUMMARY | 2018-05-06 11:31 | XMS REPORT | Continuity of Care Document ---
:1940 External Reference #:[id number] Author Name Garland Funez M.D. 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 Tobacco Use Reviewed: 12/14/16 Never Smoked Cigarettes Smoking Status Reviewed: 04/27/18 Never Smoked Cigarettes ETOH Use 12/14/2016 Current Alcohol Use: "a couple glasses a Daily day" of wine (total ~16oz/day) and has been doing this for a long time Tobacco Use Start: Unknown Patient has never smoked Exercise Type/Frequency 12/14/2016 Exercises regularly incl swimming, pickle ball, lots of walking, gardening Age 1st [place] 21 Years Old Allergies, Adverse Reactions, Alerts Date Description Reaction Status Severity Comments 11/15/2016 Cardizem Active photo dermatitis 11/15/2016 Ampicillin Active itching 11/15/2016 Tramadol Active itching 11/15/2016 Vancomycin Active itching 03/21/2018 Keflex Active itching 03/21/2018 Doxycycline Active blisters 04/27/2018 Furosemide Itching, rash Active Moderate Medications Medication Date Status Form Strength Qnty SIG Indications Ordering Provider Torsemide Active Tablets 20mg take 3 I50.33 Sangitacocharly, 8 tablets (60 Yassine Haque mg) once daily in the morning; for heart failure/paco a R60.0 Rolling Walker 05/05/2018 Active 1units Kary Funez/ Seat Yassine Haque Amiodarone HCL 05/02/2018 Active Tablets 200mg 2 tabs by I48.92 Unknown mouth every day I48.91 Calcium + D3 05/02/2018 Active Tablets [id number] take one Unknown tablet by mouth daily (supplement) Digoxin 05/02/2018 Active Tablets 125mcg one po daily Unknown Walker With A 04/27/2018 Active Misc 1u I4 Soniya Funez ni 8. austin Haque 89 M.D. Warfarin 04/12/2018 Active Tablets 1mg as directed Unknown Sodium Antioxidant 04/12/2018 Active Capsules one cap po Unknown daily Metoprolol 04/12/2018 Active Tablets 25mg take 1/2 Unknown Tartrate tablet by mouth twice a day Sertraline HCL 02/14/2018 Active Tablets 100mg 90 1 by mouth F4 lam Funez every day for 1. flavia Haque mood 1 M.D. Timolol 02/10/2018 Active GFS 0.5% 1 drop to the [place] Maleate Left eye daily , Ophthalmic Gel Luz Elena connor MD Latanoprost 10/25/2016 Active Solution 0.005% Instill 1 Drop Unknown In Each Eye AT Bedtime Torsemide 05/02/2018 - Hx Tablets 20mg 3 tabs po I5 Unknown 05/05/2018 twice daily 0. 33 R60.0 Amiodarone HCL 04/23/2018 - Hx Tablets 200mg 200 mg by I48.92 Unknown 04/24/2018 mouth twice daily Amiodarone HCL 04/23/2018 - Hx Tablets 200mg 1/2 tablet I48.92 Silcoff , 05/05/2018 by mouth Garland, 2x/day for M.D. heart rhythm control Hydroxyzine HCL 04/15/2018 - Hx Tablets 25mg 45t 1-2 tabs by L50.9 Silcoff, 04/26/2018 abs mouth q-6 Garland, hours for M.D. rash, can cause drowsiness. Amiodarone HCL 04/12/2018 - Hx Tablets 400mg take 1 tab I48.92 Unknown 04/23/2018 po 3x/day for 3 days. Then 400 mg 2x/day for 7 days, then 1/2 tab twice daily Furosemide 04/12/2018 - Hx Tablets 40mg one tab Unknown 04/15/2018 daily for 5 days Potassium 04/12/2018 - Hx Tablets ER 20Meq one tab po x Unknown Chloride Jerrica ER 04/15/2018 5 days Aspirin Adult Low 04/12/2018 - Hx Tablets DR 81mg 1 by mouth Unknown Dose 04/19/2018 every day Vitamin B Complex 03/26/2018 - Hx Capsule 1 by mouth Unknown 04/14/2018 once daily Metoprolol 03/13/2018 - Hx Tablets ER 25mg 25mg qd to Vamsi Succinate ER 04/12/2018 24HR lower pulse MD Darrel Eliquis 03/13/2018 - Hx Tablets 5mg bid Vamsi, 04/14/2018 MD Darrel Cephalexin 03/12/2018 - Hx Capsules 500mg 28c 1 capsule by L03.115 Unknown 03/19/2018 aps mouth every 6 hours for skin infection on leg Triamcinolone 02/20/2018 - Hx Cream 0.1% 80g apply to R21 Dee Dee Acetonide 03/20/2018 m affected Garland, areas on M.D. arms and legs 2x/day for 2weeks, then use as needed only needed L29.9 Sertraline HCL 02/10/2018 - Hx Tablets 50mg 2 by mouth F41.1 Silcoff, 02/14/2018 every day; Garland for mood M.D. PT For R Leg Pain 02/08/2018 - Hx please M79.604 Silcoff, 04/14/2018 evaluate Garland, and treat M.D. Benicar [...] - Hx Tablets 1 by mouth G47.62 Silcoff, 03/20/2018 once daily Garland, for muscle M.D. cramps; stop after a couple of months if not helpful Acetaminophen 06/08/2017 - Hx Tablets 500mg 2 by mouth M25.50 Silcoff, Extra Strength 03/12/2018 up to Garland, 4x/day as M.D. needed for pain Actonel 12/13/2016 - Hx 1 weekly M85.80 Unknown 12/14/2016 Multivitamin 11/14/2016 - Hx Tablets 1 capful Unknown Adult 04/14/2018 daily Ewing 3 11/14/2016 - Hx Capsules daily Unknown 04/14/2018 Opc-3 11/14/2016 - Hx 1 capful Unknown 04/14/2018 daily Tylenol Extra 11/14/2016 - Hx Tablets 500mg bid Unknown Strength 06/16/2017 Biocal 11/14/2016 - Hx Capsules daily Unknown 04/14/2018 Risedronate 10/22/2016 - Hx Tablets 35mg 1 per week M85.88 Unknown Sodium 12/14/2016 as directed Sertraline HCL 09/30/2016 - Hx Tablets 50mg 90ta 1 tablet by F41.1 Silcoff, 02/10/2018 bs mouth Garland, daily; for M.D. mood Benicar HCT 03/19/2016 - Hx Tablets 20-12.5m 1 tablet po I10 Unknown 12/15/2017 g daily Metoprolol - Hx Tablets 25mg Unknown Tartrate 04/14/2018 Medications Administered in Office Medication Date Status Form Strength Qnty SIG Indications Ordering Provider injection, Administered Injection mathew Funez, 10 mg 018 Yassine Haque Immunizations CPT Code Status Date Vaccine Lot # [id number] Given 03/13/2018 Influenza Vaccine Split Virus Preservative Free Im [id number] Use 21869 Given 03/11/2018 Adacel or Boostrix, TDaP 29146 Given 06/08/2017 Pneumococcal Immunization [id number] 54658 Given 04/07/2017 Influenza Virus Vaccine, Quadrivalent, Split, [id number] Preservative Free 48194 Given 05/15/2015 Prevnar 13 64230 Given 11/05/2009 Zostavax 40978 Given 05/05/2009 Adacel or Boostrix, TDaP Vital Signs Date Vital Result Comment 05/05/2018 2:07pm BP Systolic 86 mmHg w/automatic cuff BP Diastolic 54 mmHg w/automatic cuff BP Systolic Recheck 100 mmHg R arm sitting BP Diastolic Recheck 60 mmHg R arm sitting Heart Rate 65 /min recheck 84, irreg irreg Weight 96.00 lb with sneakers 04/27/2018 5:03pm BP Systolic 124 mmHg BP [...] Date Facility Test Result H/L Range Note Inr/Protime 05/05/2018 [facility] Inr 1.57 High 0.77-1.02 [phone] Basic Metabolic 05/02/2018 [facility]. Glucose 96 mg/dL N 74- 106 1 Panel LABORATORY [phone] BUN 23 mg/dL High 7-18 Creatinine 1.4 mg/dL High 0.6-1.3 Glom Filtration Rate, Estimate 39 mL/min >60 If 47 mL/min >60 2 BUN/Creat 16.4 ratio Sodium 140 mmol/L N 136-145 Potassium 3.5 mmol/L 3.5-5.1 Chloride 95 mmol/L Low 98-107 Carbon Dioxide 36 mmol/L High 21-32 Anion Gap 9 mEq/L N 8-16 Calcium 7.6 mg/dL Low 8.5-10.1 Basic Metabolic Panel 05/02/2018 [facility]. Glucose 91 mg/dL N 74-106 LABORATORY [phone] BUN 22 mg/dL High 7-18 Creatinine 1.4 mg/dL High 0.6-1.3 Glom Filtration Rate, Estimate 39 mL/min >60 If 47 mL/min >60 3 BUN/Creat 15.7 ratio Sodium 139 mmol/L N 136-145 Potassium 3.6 mmol/L N 3.5-5.1 Chloride 96 mmol/L Low 98-107 Carbon Dioxide 37 mmol/L High 21-32 Anion Gap 6 mEq/L Low 8-16 Calcium 7.9 mg/dL Low 8.5-10.1 Laboratory test 05/02/2018 [facility]. Magnesium 2.4 mg/dL N 1.8-2.4 finding LABORATORY [phone] Pleural FLD 05/02/2018 [facility]. Color PALE YELLOW cc/Diff LABORATORY [phone] Pleural FLD Appearance CLEAR Pleural FLD WBC 3 /uL N 0-1000 Pleural FLD RBC < 29646 /uL N 0-38907 Pleural FLD Poly 2 % N 0-25 Pleural Fluid Lymphs 67 % Pleural Fluid Monocytes 1 % Pleural FLD Other Cell 30 % 4 Pleural FLD Diff Comment . 5 Laboratory test 05/02/2018 [facility]. Pleural FLD 2.2 g/dL . 6 finding LABORATORY Total Protein [phone] Pleural FLD Albumin 1.4 g/dL . 7 Pleural FLD LDH 104 IU/L . 8 Pleural FLD Glucose 111 mg/dL . 9 Pleural Fluid pH 7.7 Not Estab. 10 CBC 05/02/2018 [facility]. White Blood Count 4.7 K/uL N 3.1- 10.7 LABORATORY [phone] Red Blood Count 3.81 M/uL Low 3.90-5.40 Hemoglobin 11.7 gm/dL N 11.6-15.8 Hematocrit 36.5 % N 36.0-46.1 Mean Cell Volume 95.8 fl N 80.9-99.0 Mean Corpuscular HGB 30.7 pg N 25.9-32.7 Mean Corpuscular HGB Conc 32.1 g/dL N 30.8-34.3 Platelet Count 239 K/uL N 155-360 Red Cell Distri Width %CV 15.0 % High 11.7-14.4 Mean Platelet Volume 9.4 fL N 8.9-12.4 Fluid Culture W/ 05/02/2018 [facility] Gram Stain NO ORGANISMS SEE 11 Gram Stain LABORATORY <SEE NOTE> [phone] Gram Stain RARE WHITE BLOOD <SEE NOTE> 12 Fluid Culture NO GROWTH: FINAL <SEE NOTE> 13 Laboratory test 05/01/2018 [facility]. Magnesium 1.7 mg/dL Low 1.8-2.4 finding LABORATORY [phone] CBS W/Automated 05/01/2018 [facility]. White Blood 4.5 K/uL N 3.1-10.7 Diff LABORATORY Count [phone] Red Blood Count 3.87 M/uL Low 3.90-5.40 Hemoglobin 11.9 gm/dL N 11.6-15.8 Hematocrit 37.1 % N 36.0-46.1 Mean Cell Volume 95.9 fl N 80.9-99.0 Mean Corpuscular HGB 30.7 pg N 25.9-32.7 Mean Corpuscular HGB Conc 32.1 g/dL N 30.8-34.3 Platelet Count 262 K/uL N 155-360 Red Cell Distri Width SD 50.2 fl High 3-47 Red Cell Distri Width %CV 14.9 % High 11.7-14.4 Mean Platelet Volume 9.4 fL N 8.9-12.4 Neut% 66.7 % N 40.4-72.8 Lymph % 15.6 % Low 20.0-42.0 [place] % 12.3 % N 4.3-13.2 Eo% 4.5 % N 0.0-6.6 Bas% 0.9 % N 0.0-1.1 Neut# 2.99 K/uL N 1.8-7.0 Lymph # 0.70 K/uL Low 1.0-4.0 [place] # 0.55 K/uL N 0.3-0.9 Eos # 0.20 K/uL N 0.0-0.5 Baso # 0.04 K/uL N 0.0-0.1 Comprehensive Metabolic 05/01/2018 [facility]. Glucose 92 mg/ dL N 74-106 Panel LABORATORY [phone] BUN 18 mg/dL N 7-18 Creatinine 1.3 mg/dL N 0.6-1.3 Glom Filtration Rate, Estimate 42 mL/min >60 If 51 mL/min >60 14 BUN/Creat 13.8 ratio Sodium 139 mmol/L N 136-145 Potassium 2.9 mmol/L Low 3.5-5.1 Chloride 94 mmol/L Low 98-107 Carbon Dioxide 37 mmol/L High 21-32 Anion Gap 8 mEq/L N 8-16 Calcium 7.5 mg/dL Low 8.5-10.1 Total Protein 5.7 g/dL Low 6.4-8.2 Albumin 2.6 g/dL Low 3.4-5.0 Globulin 3.1 g/dL N 1.9-4.3 Alb/Glob 0.8 ratio Bilirubin,Total 0.3 mg/dL N 0.2-1.0 Sgot/Ast 29 U/L N 15-37 SGPT/Alt 31 U/L 12-78 Alkaline Phosphatase 169 U/L High 45-117 Protime 05/01/2018 [facility]. Protime 25.0 seconds High 12.0 -14.4 LABORATORY [phone] Inr 2.3 High 0.9-1.1 15 Laboratory test 04/30/2018 [facility]. Magnesium 1.3 mg/dL Low 1.8-2.4 16 finding LABORATORY [phone] Digoxin 1.6 ng/mL N 0.8-1.9 17 Basic Metabolic Panel 04/30/2018 [facility]. Glucose 91 mg/dL N 74-106 LABORATORY [phone] BUN 16 mg/dL N 7-18 Creatinine 1.4 mg/dL High 0.6-1.3 Glom Filtration Rate, Estimate 39 mL/min >60 If 47 mL/min >60 18 BUN/Creat 11.4 ratio Sodium 140 mmol/L N 136-145 Potassium 4.5 mmol/L 3.5-5.1 Chloride 97 mmol/L Low 98-107 Carbon Dioxide 35 mmol/L High 21-32 Anion Gap 8 mEq/L N 8-16 Calcium 8.1 mg/dL Low 8.5-10.1 Laboratory test 04/30/2018 [facility]. Magnesium 1.9 mg/dL N 1.8-2.4 finding LABORATORY [phone] Protime 04/30/2018 [facility]. Protime 24.9 seconds High 12.0 -14.4 LABORATORY [phone] Inr 2.3 High 0.9-1.1 19 CBS W/Automated 04/30/2018 [facility]. White Blood 4.6 K/uL N 3.1-10.7 Diff LABORATORY Count [phone] Red Blood Count 4.24 M/uL N 3.90-5.40 Hemoglobin 13.3 gm/dL N 11.6-15.8 Hematocrit 40.2 % N 36.0-46.1 Mean Cell Volume 94.8 fl N 80.9-99.0 Mean Corpuscular HGB 31.4 pg N 25.9-32.7 Mean Corpuscular HGB Conc 33.1 g/dL N 30.8-34.3 Platelet Count 269 K/uL N 155-360 Red Cell Distri Width SD 50.3 fl High 3-47 Red Cell Distri Width %CV 14.9 % High 11.7-14.4 Mean Platelet Volume 8.9 fL N 8.9-12.4 Neut% 74.1 % High 40.4-72.8 Lymph % 13.4 % Low 20.0-42.0 [place] % 8.4 % N 4.3-13.2 Eo% 3.2 % N 0.0-6.6 Bas% 0.9 % N 0.0-1.1 Neut# 3.44 K/uL N 1.8-7.0 Lymph # 0.62 K/uL Low 1.0-4.0 [place] # 0.39 K/uL N 0.3-0.9 Eos # 0.15 K/uL N 0.0-0.5 Baso # 0.04 K/uL N 0.0-0.1 Laboratory test 04/29/2018 [facility]. Thyroid Stim 3.60 uIU/ mL N 0.30-4.20 20 finding LABORATORY Hormone [phone] Free T4 1.33 ng/dL N 0.76-1.46 21 Digoxin 2.2 ng/mL High 0.8-1.9 22 Basic Metabolic Panel 04/29/2018 [facility]. Glucose 92 mg/dL N 74-106 LABORATORY [phone] BUN 17 mg/dL N 7-18 Creatinine 1.1 mg/dL N 0.6-1.3 Glom Filtration Rate, Estimate 51 mL/min >60 If >60 mL/min >60 23 BUN/Creat 15.4 ratio Sodium 140 mmol/L N 136-145 Potassium 3.4 mmol/L Low 3.5-5.1 Chloride 101 mmol/L N 98-107 Carbon Dioxide 32 mmol/L N 21-32 Anion Gap 7 mEq/L Low 8-16 Calcium 7.8 mg/dL Low 8.5-10.1 Laboratory test 04/29/2018 [facility]. Act Partial 34.8 seconds N 23.4-35.0 finding LABORATORY Thrombo Time [phone] CBC 04/29/2018 [facility]. White Blood 5.8 K/uL N 3.1-10.7 LABORATORY Count [phone] Red Blood Count 4.10 M/uL N 3.90-5.40 Hemoglobin 12.4 gm/dL N 11.6-15.8 Hematocrit 38.8 % 36.0-46.1 Mean Cell Volume 94.6 fl N 80.9-99.0 Mean Corpuscular HGB 30.2 pg N 25.9-32.7 Mean Corpuscular HGB Conc 32.0 g/dL N 30.8-34.3 Platelet Count 290 K/uL N 155-360 Red Cell Distri Width %CV 14.8 % High 11.7-14.4 Mean Platelet Volume 9.3 fL N 8.9-12.4 Protime 04/29/2018 [facility]. Protime 23.9 seconds High 12.0 -14.4 LABORATORY [phone] Inr 2.2 High 0.9-1.1 24 Aot Request 04/29/2018 [facility] Aot Request Test(s) added 25 LABORATORY [phone] Tests to be added: tsh free t4 free <SEE NOTE> 26 Laboratory test 04/28/2018 [facility] Act Partial 32.4 seconds N 23.4-35.0 finding LABORATORY Thrombo Time [phone] Aot Request 04/28/2018 [facility] Aot Request Test(s) 27 LABORATORY added [phone] Tests to be added: magnesium CBS W/Automated 04/28/2018 [facility]. White Blood 5.2 K/uL N 3.1-10.7 Diff LABORATORY Count [phone] Red Blood Count 3.57 M/uL Low 3.90-5.40 Hemoglobin 11.0 gm/dL Low 11.6-15.8 Hematocrit 33.7 % Low 36.0-46.1 Mean Cell Volume 94.4 fl N 80.9-99.0 Mean Corpuscular HGB 30.8 pg N 25.9-32.7 Mean Corpuscular HGB Conc 32.6 g/dL N 30.8-34.3 Platelet Count 325 K/uL N 155-360 Red Cell Distri Width SD 48.6 fl High 3-47 Red Cell Distri Width %CV 14.8 % High 11.7-14.4 Mean Platelet Volume 9.4 fL N 8.9-12.4 Neut% 69.8 % N 40.4-72.8 Lymph % 15.0 % Low 20.0-42.0 [place] % 10.0 % N 4.3-13.2 Eo% 4.4 % N 0.0-6.6 Bas% 0.8 % N 0.0-1.1 Neut# 3.64 K/uL N 1.8-7.0 Lymph # 0.78 K/uL Low 1.0-4.0 [place] # 0.52 K/uL N 0.3-0.9 Eos # 0.23 K/uL N 0.0-0.5 Baso # 0.04 K/uL N 0.0-0.1 Laboratory test 04/28/2018 [facility]. Pleural FLD 2.1 g/dL . 28 finding LABORATORY Total Protein [phone] Pleural FLD Albumin 1.5 g/dL . 29 Pleural FLD LDH 110 IU/L . 30 Pleural FLD Glucose 111 mg/dL . 31 Pleural FLD Amylase 32 U/L . 32 Basic Metabolic Panel 04/28/2018 [facility]. Glucose 102 mg/dL N 74-106 LABORATORY [phone] BUN 19 mg/dL High 7-18 Creatinine 1.0 mg/dL N 0.6-1.3 Glom Filtration Rate, Estimate 57 mL/min >60 If >60 mL/min >60 33 BUN/Creat 19.0 ratio Sodium 141 mmol/L N 136-145 Potassium 3.4 mmol/L Low 3.5-5.1 Chloride 104 mmol/L N 98-107 Carbon Dioxide 27 mmol/L N 21-32 Anion Gap 10 mEq/L N 8-16 Calcium 7.9 mg/dL Low 8.5-10.1 Laboratory test 04/28/2018 [facility]. Magnesium 1.7 mg/dL Low 1.8-2.4 finding LABORATORY [phone] Pleural FLD 04/28/2018 [facility]. Color PALE YELLOW cc/Diff LABORATORY [phone] Pleural FLD Appearance CLEAR Pleural FLD WBC 701 /uL N 0-1000 Pleural FLD RBC < 42071 /uL N [phone] Pleural FLD Poly 21 % N 0-25 Pleural Fluid Lymphs 69 % Pleural Fluid Monocytes 7 % 34 Pleural Fluid Eosinophils 1 % Pleural FLD Other Cell 2 % 35 Fluid Culture W/ 04/28/2018 [facility]. Gram Stain NO ORGANISMS SEE 36 Gram Stain LABORATORY <SEE NOTE> [phone] Gram Stain RARE WHITE BLOOD <SEE NOTE> 37 Fluid Culture NO GROWTH: FINAL <SEE NOTE> 38 Protime 04/28/2018 [facility]. Protime 23.3 seconds High 12.0 -14.4 LABORATORY [phone] Inr 2.1 High 0.9-1.1 39 Comprehensive 04/27/2018 [facility]. Glucose 106 mg/dL N 74- 106 40 Metabolic Panel LABORATORY [phone] BUN 19 mg/dL High 7-18 Creatinine 1.1 mg/dL N 0.6-1.3 Glom Filtration Rate, Estimate 51 mL/min >60 If >60 mL/min >60 41 BUN/Creat 17.2 ratio Sodium 140 mmol/L N 136-145 Potassium 4.6 mmol/L N 3.5-5.1 Chloride 105 mmol/L N 98-107 Carbon Dioxide 26 mmol/L N 21-32 Anion Gap 9 mEq/L N 8-16 Calcium 8.3 mg/dL Low 8.5-10.1 Total Protein 6.9 g/dL N 6.4-8.2 Albumin 3.1 g/dL Low 3.4-5.0 Globulin 3.8 g/dL N 1.9-4.3 Alb/Glob 0.8 ratio Bilirubin,Total 0.3 mg/dL N 0.2-1.0 Sgot/Ast 45 U/L High 15-37 SGPT/Alt 55 U/L N 12-78 Alkaline Phosphatase 256 U/L High 45-117 Laboratory test 04/27/2018 [facility]. NT-proBNP 23768.0 pg/mL High <450 finding LABORATORY [phone] Troponin-I 0.079 ng/mL 42 Thyroid Stim Hormone 7.19 uIU/mL High 0.30-4.20 Digoxin 0.1 ng/mL Low 0.8-1.9 Ua RFX Micro & 04/27/2018 [facility]. Urine Color YELLOW Yellow Culture II LABORATORY [phone] Urine Clarity CLEAR Clear Urine Glucose - Dipstick NEGATIVE mg/dL Negative Urine Bilirubin - Dipstick NEGATIVE Negative Urine Ketone TRACE mg/dL High Negative Urine Specific [place] 1.025 N 1.010-1.030 Urine Blood NEGATIVE Negative Urine PH 6.0 Low 6.5-7.5 Urine Protein - Dipstick TRACE mg/dL Negative Urine Urobilinogen - Dipstick 0.2 E.U./dL N 0.2-1.0 Urine Nitrite - Dipstick NEGATIVE Negative Urine Leuk Esterase NEGATIVE Negative Source: URINE, CLEAN CAT <SEE NOTE> 43 CBS W/Automated 04/27/2018 [facility]. White Blood 6.7 K/uL N 3.1-10.7 Diff LABORATORY Count [phone] Red Blood Count 3.96 M/uL N 3.90-5.40 Hemoglobin 12.2 gm/dL N 11.6-15.8 Hematocrit 38.1 % N 36.0-46.1 Mean Cell Volume 96.2 fl N 80.9-99.0 Mean Corpuscular HGB 30.8 pg N 25.9-32.7 Mean Corpuscular HGB Conc 32.0 g/dL N 30.8-34.3 Platelet Count 388 K/uL High 155-360 Red Cell Distri Width SD 50.9 fl High 3-47 Red Cell Distri Width %CV 14.9 % High 11.7-14.4 Mean Platelet Volume 9.2 fL N 8.9-12.4 Neut% 69.5 % N 40.4-72.8 Lymph % 15.9 % Low 20.0-42.0 [place] % 9.1 % N 4.3-13.2 Eo% 4.6 % N 0.0-6.6 Bas% 0.9 % N 0.0-1.1 Neut# 4.64 K/uL N 1.8-7.0 Lymph # 1.06 K/uL N 1.0-4.0 [place] # 0.61 K/uL N 0.3-0.9 Eos # 0.31 K/uL N 0.0-0.5 Baso # 0.06 K/uL N 0.0-0.1 Protime 04/27/2018 [facility] Protime 24.2 seconds High 12.0 -14.4 LABORATORY [phone] Inr 2.2 High 0.9-1.1 44 Protime W/ Inr(Add 04/24/2018 [facility] #International Normalized 2.2 V58.61) Protime W/ Inr(Add 04/21/2018 [facility] #International Normalized 1.8 V58.61) Protime W/ Inr(Add 04/17/2018 [facility] #International Normalized 1.6 V58.61) Protime W/ Inr(Add 04/14/2018 [facility] #Prothrombin Time <pending> V58.61) #International Normalized 2.4 Basic Metabolic Panel 03/27/2018 [facility] Sodium 132 mmol/L Low 135 -145 [phone] Chloride 98 mmol/L Low 101-111 Co2 Carbon Dioxide 27 mmol/L N 22-32 Glucose 83 mg/dL N 70-100 Blood Urea Nitrogen 19 mg/dL N 6-24 Creatinine 0.85 mg/dL N 0.51-0.95 BUN/Creatinine Ratio 22.4 High 8-20 Calcium 9.5 mg/dL N 8.6-10.3 Egfr Non- 65.0 >60 Egfr 78.7 >60 45 Potassium 5.2 mmol/L High 3.5-5.0 Anion Gap 7 mmol/L N 2-11 Laboratory test 03/21/2018 [facility] Body Fluid None Seen None Seen 46 finding [phone] Crystals CBS W/Automated 03/11/2018 [facility]. White Blood 5.2 K/uL N 3.1-10.7 47 Diff LABORATORY Count [phone] Red Blood Count 3.58 M/uL Low 3.90-5.40 Hemoglobin 11.9 gm/dL N 11.6-15.8 Hematocrit 33.9 % Low 36.0-46.1 Mean Cell Volume 94.7 fl N 80.9-99.0 Mean Corpuscular HGB 33.2 pg High 25.9-32.7 Mean Corpuscular HGB Conc 35.1 g/dL High 30.8-34.3 Platelet Count 228 K/uL N 155-360 Red Cell Distri Width SD 41.7 fl N 3-47 Red Cell Distri Width %CV 12.5 % N 11.7-14.4 Mean Platelet Volume 9.9 fL N 8.9-12.4 Neut% 73.3 % High 40.4-72.8 Lymph % 17.9 % Low 20.0-42.0 [place] % 6.9 % N 4.3-13.2 Eo% 1.5 % N 0.0-6.6 Bas% 0.4 % N 0.0-1.1 Neut# 3.80 K/uL N 1.8-7.0 Lymph # 0.93 K/uL Low 1.0-4.0 [place] # 0.36 K/uL N 0.3-0.9 Eos # 0.08 K/uL N 0.0-0.5 Baso # 0.02 K/uL N 0.0-0.1 Comprehensive Metabolic 03/11/2018 [facility]. Glucose 97 mg/ dL N 74-106 Panel LABORATORY [phone] BUN 15 mg/dL N 7-18 Creatinine 0.8 mg/dL N 0.6-1.3 Glom Filtration Rate, Estimate >60 mL/min >60 If >60 mL/min >60 48 BUN/Creat 18.7 ratio Sodium 127 mmol/L Low 136-145 Potassium 3.8 mmol/L N 3.5-5.1 Chloride 92 mmol/L Low 98-107 Carbon Dioxide 28 mmol/L N 21-32 Anion Gap 7 mEq/L Low 8-16 Calcium 8.9 mg/dL N 8.5-10.1 Total Protein 7.5 g/dL N 6.4-8.2 Albumin 4.3 g/dL N 3.4-5.0 Globulin 3.2 g/dL N 1.9-4.3 Alb/Glob 1.3 ratio Bilirubin,Total 0.7 mg/dL N 0.2-1.0 Sgot/Ast 32 U/L N 15-37 SGPT/Alt 27 U/L N 12-78 Alkaline Phosphatase 77 U/L N 45-117 Laboratory test 03/11/2018 [facility] C-Reactive 34.1 High < 3.0 finding LABORATORY Protein,Quant mg/L [phone] Creatinine 02/14/2018 [facility] Creatinine 0.83 N 0.51-0.9 [phone] mg/dL 5 Egfr Non- 67.0 >60 Egfr 81.1 >60 49 Aot Request 01/31/2018 [facility] Aot Request Test(s) added 50, 51 LABORATORY [phone] Tests to be added: troponin Aot Request 01/31/2018 [facility] Aot Request Test(s) added 52 LABORATORY [phone] Tests to be added: LFT's CBC 01/31/2018 [facility] White Blood Count 5.1 K/uL 3.1- 10.7 LABORATORY [phone] Red Blood Count 3.21 M/uL Low 3.90-5.40 Hemoglobin 10.8 gm/dL Low 11.6-15.8 Hematocrit 31.8 % Low 36.0-46.1 Mean Cell Volume 99.1 fl High 80.9-99.0 Mean Corpuscular HGB 33.6 pg High 25.9-32.7 Mean Corpuscular HGB Conc 34.0 g/dL N 30.8-34.3 Platelet Count 202 K/uL N 155-360 Red Cell Distri Width %CV 12.6 % N 11.7-14.4 Mean Platelet Volume 9.7 fL N 8.9-12.4 Basic Metabolic Panel 01/31/2018 [facility]. Glucose 94 mg/dL N 74-106 LABORATORY [phone] BUN 34 mg/dL High 7-18 Creatinine 1.7 mg/dL High 0.6-1.3 Glom Filtration Rate, Estimate 31 mL/min >60 If 38 mL/min >60 53 BUN/Creat 20.0 ratio Sodium 136 mmol/L N 136-145 Potassium 3.9 mmol/L N 3.5-5.1 Chloride 100 mmol/L N 98-107 Carbon Dioxide 26 mmol/L N 21-32 Anion Gap 10 mEq/L N 8-16 Calcium 8.3 mg/dL Low 8.5-10.1 Laboratory test 01/30/2018 [facility]. Troponin-I 0.044 ng/mL 54 finding LABORATORY [phone] Laboratory test 01/30/2018 [facility]. Act Partial > 150.0 High 23.4- 55 finding LABORATORY Thrombo Time seconds 35.0 [phone] Laboratory test 01/30/2018 [facility]. Troponin-I 0.030 ng/mL 56 finding LABORATORY [phone] CBS W/Automated 01/30/2018 [facility]. White Blood 3.2 K/uL N 3.1-1 Diff LABORATORY Count 0.7 [phone] Red Blood Count 4.01 M/uL N 3.90-5.40 Hemoglobin 13.5 gm/dL N 11.6-15.8 Hematocrit 38.8 % N 36.0-46.1 Mean Cell Volume 96.8 fl N 80.9-99.0 Mean Corpuscular HGB 33.7 pg High 25.9-32.7 Mean Corpuscular HGB Conc 34.8 g/dL High 30.8-34.3 Platelet Count 259 K/uL N 155-360 Red Cell Distri Width SD 42.9 fl N 3-47 Red Cell Distri Width %CV 12.5 % N 11.7-14.4 Mean Platelet Volume 9.8 fL N 8.9-12.4 Neut% 61.9 % N 40.4-72.8 Lymph % 27.0 % N 20.0-42.0 [place] % 6.8 % N 4.3-13.2 Eo% 3.1 % N 0.0-6.6 Bas% 1.2 % High 0.0-1.1 Neut# 1.99 K/uL N 1.8-7.0 Lymph # 0.87 K/uL Low 1.0-4.0 [place] # 0.22 K/uL Low 0.3-0.9 Eos # 0.10 K/uL N 0.0-0.5 Baso # 0.04 K/uL N 0.0-0.1 CBS W/Automated 01/29/2018 [facility]. White Blood 4.4 K/uL N 3.1-10.7 57 Diff LABORATORY Count [phone] Red Blood Count 3.68 M/uL Low 3.90-5.40 Hemoglobin 12.4 gm/dL N 11.6-15.8 Hematocrit 36.3 % N 36.0-46.1 Mean Cell Volume 98.6 fl N 80.9-99.0 Mean Corpuscular HGB 33.7 pg High 25.9-32.7 Mean Corpuscular HGB Conc 34.2 g/dL N 30.8-34.3 Platelet Count 256 K/uL N 155-360 Red Cell Distri Width SD 43.0 fl N 3-47 Red Cell Distri Width %CV 12.5 % N 11.7-14.4 Mean Platelet Volume 10.0 fL N 8.9-12.4 Neut% 62.3 % N 40.4-72.8 Lymph % 26.6 % N 20.0-42.0 [place] % 6.8 % N 4.3-13.2 Eo% 3.6 % N 0.0-6.6 Bas% 0.7 % N 0.0-1.1 Neut# 2.77 K/uL N 1.8-7.0 Lymph # 1.18 K/uL N 1.0-4.0 [place] # 0.30 K/uL N 0.3-0.9 Eos # 0.16 K/uL N 0.0-0.5 Baso # 0.03 K/uL N 0.0-0.1 Aot Request 01/29/2018 [facility] Aot Request Test(s) added 58, 59 LABORATORY [phone] Tests to be added: Lipase Laboratory 01/29/2018 [facility]. Troponin-I 0.050 ng/mL 60, 61 test finding LABORATORY [phone] Hepatitis 01/29/2018 [facility] Hepatitis A Negative Negative Evaluation LABORATORY Antibody IgM [phone] HBsAg Screen [Ref Lab] Negative Negative Hepatitis B Core IgM Negative Negative HCV Signal/Cutoff ratio < 0.1 s/corat 0.0-0.9 62 Laboratory test 01/29/2018 [facility] D-Dimer, 3.35 ug/mL High 63 finding LABORATORY Quantitative [phone] Aot Request 01/29/2018 [facility] Aot Request Test(s) 64 LABORATORY added [phone] Tests to be added: BNP, D-Dimer, CP <SEE NOTE> 65 Urine Micro Inhouse 12/16/2017 In House Ua WBC - Ua RBC - Ua Casts - Ua Epi - Ua Other - Ua Glucose - Ua Bilirubin - Ua Ketones - Ua Specific [place] 1.010 Ua Blood - Ua PH 5.0 Ua Protein - Ua Urobilinogen - Ua Nitrite - Ua Leukocytes - Creatinine Clearance 12/07/2017 [facility] Urine Collection Time 24 hr [phone] Urine Total Volume 1750 mL Urine Random Creatinine 45.68 mg/dL Creatinine 0.97 mg/dL High 0.51-0.95 Creatinine Clearance 57 mL/min Low 88-128 Laboratory test 06/13/2017 [facility] Vitamin D 69.6 ng/mL High 20- 50 finding [phone] Total 25(Oh) CBC Auto Diff 06/13/2017 [facility] White Blood 3.6 10^3/uL N 3.5- 10.8 [phone] Count Red Blood Count 3.57 10^6/uL Low 4.0-5.4 Hemoglobin 11.8 g/dL Low 12.0-16.0 Hematocrit 36 % N 35-47 Mean Corpuscular Volume 100 fL High 80-97 Mean Corpuscular Hemoglobin 33 pg High 27-31 Mean Corpuscular HGB Conc 33 g/dL N 31-36 Red Cell Distribution Width 13 % N 10.5-15 Platelet Count 197 10^3/uL N 150-450 Mean Platelet Volume 9 um3 N 7.4-10.4 Abs Neutrophils 2.5 10^3/uL N 1.5-7.7 Abs Lymphocytes 0.9 10^3/uL Low 1.0-4.8 Abs Monocytes 0.2 10^3/uL N 0-0.8 Abs Eosinophils 0.1 10^3/uL N 0-0.6 Abs Basophils 0 10^3/uL N 0-0.2 Abs Nucleated RBC 0.01 10^3/uL Granulocyte % 67.9 % N 38-83 Lymphocyte % 23.8 % Low 25-47 Monocyte % 5.5 % N 1-9 Eosinophil % 1.8 % N 0-6 Basophil % 1.0 % N 0-2 Nucleated Red Blood Cells % 0.2 Pthi 06/13/2017 [facility] Calcium (PTH Intact) 10.3 mg/dL N 8.6- 10.3 [phone] PTH Intact 2.0 pmol/L N 1.3-9.3 Laboratory test finding 06/13/2017 [facility] Phosphorus 4.5 mg/dL N 2.5-5.0 [phone] Iron & Iron Binding 06/13/2017 [facility] Iron 89 g/dL N 50-212 Capacity [phone] Unsaturated Iron Binding 297 g/dL Total Iron Binding Capacity 386 g/dL N 250-450 % Iron Saturation 23 % N 15-55 Creatinine Clearance 06/13/2017 [facility] Creatinine 1.14 mg/dL High 0.51-0.95 [phone] Urine Collection Time 24 Urine Total Volume 1300 mL Urine Random Creatinine 56.27 mg/dL Creatinine Clearance 45 mL/min Low 88-128 Basic Metabolic Panel 06/13/2017 [facility] Sodium 138 mmol/L N 133- 145 [phone] Potassium 5.0 mmol/L N 3.5-5.0 Chloride 105 mmol/L N 101-111 Co2 Carbon Dioxide 27 mmol/L N 22-32 Anion Gap 6 mmol/L N 2-11 Glucose 92 mg/dL N 70-100 Blood Urea Nitrogen 28 mg/dL High 6-24 Creatinine 1.12 mg/dL High 0.51-0.95 BUN/Creatinine Ratio 25.0 High 8-20 Calcium 9.8 mg/dL N 8.6-10.3 Egfr Non- 47.4 >60 Egfr 61.0 >60 66 1 CHF,AFIB WITH RVR 2 Note: Persistent reduction for 3 months or more in an eGFR <60 mL/min/1.73 m2 defines CKD. Patients with eGFR values >/=60 mL/min/1.73 m2 may also have CKD if evidence of persistent proteinuria is present. The original MDRD equation for estimated GFR is not valid for patients less than 18 years of age. Additional information may be found at www.kdoqi.org. 3 Note: Persistent reduction for 3 months or more in an eGFR <60 mL/min/1.73 m2 defines CKD. Patients with eGFR values >/=60 mL/min/1.73 m2 may also have CKD if evidence of persistent proteinuria is present. The original MDRD equation for estimated GFR is not valid for patients less than 18 years of age. Additional information may be found at [email or web address]. 4 MESOTHELIAL CELLS MACROPHAGES 5 Hematology Consultation - Final Report Case# [id number] Final Diagnosis REVIEW OF PLEURAL FLUID CYTOSPIN PREPARATION Review of cytospin preparation shows occasional reactive mesothelial cells and a few lymphocytes. No neoplastic cells are identified. Gross Description Cytospin prep of pleural fluid Clinical Data CHF, A Fib Germain Solomon M.D., Patholigist Reported 05/04/2018 at 7:52 PM, Report Electronically signed Performed at: [facility] [id number] [place] [address] 6 : Peritoneal : Pleural : Synovial : : : : : : : Transudate : Exudate : : : : : : : : Not Estab. : <3 g/dL : >3 g/dL : <2.5 g/dL : : : : : : The method performance specifications have not been established for this test in body fluid. The test result should be integrated into the clinical context for interpretation. The method performance specifications have not been established for this test in body fluid. The test result should be integrated into the clinical context for interpretation. 7 : Peritoneal : Pleural : Synovial : : : : : : : Transudate : Exudate : : : : : : : : Not Estab. : Not Estab. : Not Estab.: Not Estab. : : : : : : The method performance specifications have not been established for this test in body fluid. The test result should be integrated into the clinical context for interpretation. The reference intervals and other method performance specifications have not been established for this test. The test result should be integrated into the clinical context for interpretation. 8 : Peritoneal : Pleural : Synovial : CSF : : : : : : : : Transudate: Exudate : : : : : : : : : : Not Estab. : <200 U/L : >200 U/L : <240 U/L : Not Estab.: : : : : : The method performance specifications have not been established for this test in body fluid. The test result should be integrated into the clinical context for interpretation. The reference intervals and other method performance specifications have not been established for this test. The test result should be integrated into the clinical context for interpretation. 9 : Peritoneal : Pleural : Synovial : : : : : : : Transudate : Exudate : : : : : : : : Not Estab. : Equal to simultaneously drawn plasma : : : : The method performance specifications have not been established for this test in body fluid. The test result should be integrated into clinical context for interpretation. The reference intervals and other method performance specifications have not been established for this test. The test result should be integrated into the clinical context for interpretation. Performed at: [address] [id number] Automatic Door Mechanic: Emily Lackey MD, Phone: [phone] This test was developed and its performance characteristics determined by [facility]. It has not been cleared or approved by the Food and Drug Administration. Performed at: [address] [id number] Automatic Door Mechanic: Emily Lackey MD, Phone: [phone] 11 NO ORGANISMS SEEN BY CYTOSPIN SMEAR 12 RARE WHITE BLOOD CELLS 13 NO GROWTH: FINAL REPORT 14 Note: Persistent reduction for 3 months or more in an eGFR <60 mL/min/1.73 m2 defines CKD. Patients with eGFR values >/=60 mL/min/1.73 m2 may also have CKD if evidence of persistent proteinuria is present. The original MDRD equation for estimated GFR is not valid for patients less than 18 years of age. Additional information may be found at [email or web address]. 15 THERAPEUTIC INR RANGE: 2.0 - 3.0 DVT, Pulmonary embolus, prophylaxis against venous thrombosis or systemic embolization in high risk patients. 2.5 - 3.5 Mechanical heart valves 16 Specimen slightly Hemolyzed, interpret with caution Line Draw (comment via IML) 17 Specimen slightly Hemolyzed, interpret with caution Line Draw (comment via IML) 18 Note: Persistent reduction for 3 months or more in an eGFR <60 mL/min/1.73 m2 defines CKD. Patients with eGFR values >/=60 mL/min/1.73 m2 may also have CKD if evidence of persistent proteinuria is present. The original MDRD equation for estimated GFR is not valid for patients less than 18 years of age. Additional information may be found at [email or web address]. 19 THERAPEUTIC INR RANGE: 2.0 - 3.0 DVT, Pulmonary embolus, prophylaxis against venous thrombosis or systemic embolization in high risk patients. 2.5 - 3.5 Mechanical heart valves 20 CALLED DIG TO HOLI B. AT 1000 04/29/18 by LAB.ELR 21 CALLED DIG TO HOLI B. AT 1000 04/29/18 by LAB.ELR 22 CALLED DIG TO HOLI B. AT 1000 04/29/18 by LAB.ELR 23 Note: Persistent reduction for 3 months or more in an eGFR <60 mL/min/1.73 m2 defines CKD. Patients with eGFR values >/=60 mL/min/1.73 m2 may also have CKD if evidence of persistent proteinuria is present. The original MDRD equation for estimated GFR is not valid for patients less than 18 years of age. Additional information may be found at www.[email or web address]. 24 THERAPEUTIC INR RANGE: 2.0 - 3.0 DVT, Pulmonary embolus, prophylaxis against venous thrombosis or systemic embolization in high risk patients. 2.5 - 3.5 Mechanical heart valves 25 Tests: tsh free t4 free t4 Instructions: 26 tsh free t4 free t4 27 Tests: magnesium Instructions: 28 : Peritoneal : Pleural : Synovial : : : : : : : Transudate : Exudate : : : : : : : : Not Estab. : <3 g/dL : >3 g/dL : <2.5 g/dL : : : : : : The method performance specifications have not been established for this test in body fluid. The test result should be integrated into the clinical context for interpretation. The method performance specifications have not been established for this test in body fluid. The test result should be integrated into the clinical context for interpretation. 29 : Peritoneal : Pleural : Synovial : : : : : : : Transudate : Exudate : : : : : : : : Not Estab. : Not Estab. : Not Estab.: Not Estab. : : : : : : The method performance specifications have not been established for this test in body fluid. The test result should be integrated into the clinical context for interpretation. The reference intervals and other method performance specifications have not been established for this test. The test result should be integrated into the clinical context for interpretation. 30 : Peritoneal : Pleural : Synovial : CSF : : : : : : : : Transudate: Exudate : : : : : : : : : : Not Estab. : <200 U/L : >200 U/L : <240 U/L : Not Estab.: : : : : : The method performance specifications have not been established for this test in body fluid. The test result should be integrated into the clinical context for interpretation. The reference intervals and other method performance specifications have not been established for this test. The test result should be integrated into the clinical context for interpretation. Performed at: [address], [place], [place] [id number] Automatic Door Mechanic: Emily Lackey MD, Phone: [phone] 31 : Peritoneal : Pleural : Synovial : : : : : : : Transudate : Exudate : : : : : : : : Not Estab. : Equal to simultaneously drawn plasma : : : : The method performance specifications have not been established for this test in body fluid. The test result should be integrated into clinical context for interpretation. The reference intervals and other method performance specifications have not been established for this test. The test result should be integrated into the clinical context for interpretation. 32 : Peritoneal : Pleural : Synovial : : : : : : : Transudate : Exudate : : : : : : : : 88-109 U/L : Not Estab. : Not Estab.: Not Estab. : : : : : : The method performance specifications have not been established for this test in body fluid. The test result should be integrated into the clinical context for interpretation. The method performance specifications have not been established for this test in body fluid. The test result should be integrated into the clinical context for interpretation. 33 Note: Persistent reduction for 3 months or more in an eGFR <60 mL/min/1.73 m2 defines CKD. Patients with eGFR values >/=60 mL/min/1.73 m2 may also have CKD if evidence of persistent proteinuria is present. The original MDRD equation for estimated GFR is not valid for patients less than 18 years of age. Additional information may be found at [email or web address]. 34 MONOCYTE=MACROPHAGE 35 OTHER CELL=MESOTHELIAL CELL 04/29/18 0725: % OTHER CELLS previously reported as: 1 % OTHER CELL=MESOTHELIAL CELL Amended result called to: ISMAEL Vaishali - 04/29/18 at 0725 36 NO ORGANISMS SEEN 37 RARE WHITE BLOOD CELLS 38 NO GROWTH: FINAL REPORT 39 THERAPEUTIC INR RANGE: 2.0 - 3.0 DVT, Pulmonary embolus, prophylaxis against venous thrombosis or systemic embolization in high risk patients. 2.5 - 3.5 Mechanical heart valves 40 FLUID ON LUNGS SENT BY DR 41 Note: Persistent reduction for 3 months or more in an eGFR <60 mL/min/1.73 m2 defines CKD. Patients with eGFR values >/=60 mL/min/1.73 m2 may also have CKD if evidence of persistent proteinuria is present. The original MDRD equation for estimated GFR is not valid for patients less than 18 years of age. Additional information may be found at www.kdoqi.org. 42 0.0 - 0.045 ng/mL: Normal 0.046 - 0.5 ng/mL: Suggestive 0.6 - 1.5 ng/mL: Consistent 43 URINE, CLEAN CATCH 44 THERAPEUTIC INR RANGE: 2.0 - 3.0 DVT, Pulmonary embolus, prophylaxis against venous thrombosis or systemic embolization in high risk patients. 2.5 - 3.5 Mechanical heart valves 45 Because ethnic data is not always readily [...] 15-29 5 Kidney failure <15 (or dialysis) 46 [id number] What is the body fluid source?: Synovial (Joint) Fluid 47 LOWER R LEG SWOLLEN 48 Note: Persistent reduction for 3 months or more in an eGFR <60 mL/min/1.73 m2 defines CKD. Patients with eGFR values >/=60 mL/min/1.73 m2 may also have CKD if evidence of persistent proteinuria is present. The original MDRD equation for estimated GFR is not valid for patients less than 18 years of age. Additional information may be found at www.[email or web address]. 49 Because ethnic data is not always readily [...] 15-29 5 Kidney failure <15 (or dialysis) 50 CHEST PAIN 51 Tests: troponin Instructions: 52 Tests: LFT's Instructions: 53 Note: Persistent reduction for 3 months or more in an eGFR <60 mL/min/1.73 m2 defines CKD. Patients with eGFR values >/=60 mL/min/1.73 m2 may also have CKD if evidence of persistent proteinuria is present. The original MDRD equation for estimated GFR is not valid for patients less than 18 years of age. Additional information may be found at www.[email or web address]. 54 0.0 - 0.045 ng/mL: Normal 0.046 - 0.5 ng/mL: Suggestive 0.6 - 1.5 ng/mL: Consistent 55 CALLED PTT TO JOSE ANTONIO Miller AT 1036 01/30/18 by LAB.ELR OKAY TO DRAW AT 740 AM WITH OTHER DRAWS Is patient on heparin protocol? Y Is patient on anticoagulants? None OK To Combine Draws Per RN 56 0.0 - 0.045 ng/mL: Normal 0.046 - 0.5 ng/mL: Suggestive 0.6 - 1.5 ng/mL: Consistent 57 SOB, LIGHT HEADED, WEAKNESS CHEST PAIN 58 SOB, LIGHT HEADED, WEAKNESS 59 Tests: Lipase Instructions: 60 CHEST PAIN 61 0.0 - 0.045 ng/mL: Normal 0.046 - 0.5 ng/mL: Suggestive 0.6 - 1.5 ng/mL: Consistent 62 INFCE Result Units: s/co ratio Negative: < 0.8 Indeterminate: 0.8 - 0.9 Positive: > 0.9 The CDC recommends that a positive HCV antibody result be followed up with a HCV Nucleic Acid Amplification test (015507). Performed at: RN - [facility] [id number] Automatic Door Mechanic: Emily Lackey MD, Phone: [phone] 63 <=0.49 ug/mL - Low likelihood of DIC, DVT or Pulmonary Embolism >0.49 ug/mL - Additional testing should be done to rule out DIC, DVT, or Pulmonary embolism as clinically indicated. ([facility] has established a 97.89% negative predictive value for thrombotic disease when a cutoff value of 0.5 ug/mL is used.) 64 Tests: BNP, D-Dimer, CPK, CRP Instructions: 65 BNP, D-Dimer, CPK, CRP 66 Because ethnic data is not always readily [...] (or dialysis) Procedures Date Code Description Status 05/01/2018 73501 Anticoagulant MGMT For Patient Taking Warfarin, Inc Completed Review & Intr 04/27/2018 98893 Electrocardiogram Complete Completed 04/27/2018 72061 X-Ray Chest 2 V TC Completed 04/27/2018 82959 X-Ray Chest 2 V pc Completed 04/24/2018 06097 Anticoagulant MGMT For Patient Taking Warfarin, Inc Completed Review & Intr 04/21/2018 40025 Anticoagulant MGMT For Patient Taking Warfarin, Inc Completed Review & Intr 04/17/2018 19297 Anticoagulant MGMT For Patient Taking Warfarin, Inc Completed Review & Intr 03/21/2018 40414 X-Ray Knee, Complete Completed 03/21/2018 43376 Inject/Drain Joint/Bursa Major Completed 12/03/2007 [id number] Colonoscopy Completed Encounters Type Date Location Provider Dx Diagnosis Office Visit 05/05/2018 Main Office Garland Funez, I48.91 Unspecified atrial 1:45p M.D. fibrillation R60.0 Localized edema I50.33 Acute on chronic diastolic (congestive) heart failure Office Visit 04/27/2018 4:20p Main Office Maisha Us I48.92 Unspecified atrial P.A. flutter R60.0 Localized edema R53.83 Other fatigue I34.9 Nonrheumatic mitral valve disorder, unspecified I50.9 Heart failure, unspecified J90 Pleural effusion, not elsewhere classified Office Visit 04/19/2018 3:30p Main Office Garland Funez, R60.1 Generalized edema M.D. L50.9 Urticaria, unspecified Z79.899 Other shelter (current) drug therapy R43.9 Unspecified disturbances of [...] Office Visit 03/13/2018 9:30a Main Office Garland uFnez, L03.115 Cellulitis of M.D. right lower limb E87.1 Hypo-osmolality and hyponatremia Z23 Encounter for immunization Office Visit 02/20/2018 4:45p Main Office Garland Funez, R21 Rash and other M.D. nonspecific skin eruption L29.9 Pruritus, unspecified I34.0 Nonrheumatic mitral (valve) insufficiency Office Visit 02/14/2018 2:00p Main Office Garland Funez, F41.1 Generalized anxiety M.DLaura disorder I10 Essential (primary) hypertension R06.00 Dyspnea, unspecified N18.3 Chronic kidney disease, stage 3 (moderate) I34.0 Nonrheumatic mitral (valve) insufficiency Z71.89 Other specified counseling Office Visit 12/16/2017 12:55p Main Office Garland Funez, I10 Essential (primary) M.DLaura hypertension D46.9 Myelodysplastic syndrome, unspecified N18.3 Chronic kidney disease, stage 3 (moderate) F41.1 Generalized anxiety disorder Z23 Encounter for immunization L29.9 Pruritus, unspecified G47.62 Sleep related leg cramps Z12.11 Encounter for screening for malignant neoplasm of colon Office Visit 06/17/2017 1:15p Main Office Dee Dee D46.9 Myelodysplastic Yassine Haque syndrome, unspecified N18.3 Chronic kidney disease, stage 3 (moderate) I10 Essential (primary) hypertension E67.3 Hypervitaminosis D F41.1 Generalized anxiety disorder Z79.899 Other intermodal customer service (current) drug therapy Office Visit 06/08/2017 2:00p Main Office Garland Funez, Z00.01 Encounter for M.D. general adult medical exam w abnormal findings Z12.31 Encntr screen mammogram for malignant neoplasm of breast M54.2 Cervicalgia M48.02 Spinal stenosis, cervical region D46.9 Myelodysplastic syndrome, unspecified G47.62 Sleep related leg cramps M25.50 Pain in unspecified joint M25.511 Pain in right shoulder Z23 Encounter for immunization Z41.8 Encntr for oth proc for purpose oth [facility] Z71.89 Other specified counseling Office Visit 12/14/2016 11:15a Main Office Garland Funez M85.80 Oth disrd of bone Yassine density and structure, unspecified site N18.3 Chronic kidney disease, stage 3 (moderate) I10 Essential (primary) hypertension F41.1 Generalized anxiety disorder D46.9 Myelodysplastic syndrome, unspecified Z71.89 Other specified counseling Plan of Treatment Future Appointment(s):05/09/2018 8:55 am - Garland Funez M.D. at Main Manfam8105/15/2018 11:45 am - Garland Funez M.D. at Main Hromfu1506/20/2018 1: 30 pm - Garland Funez M.D. at Main Pkgsyv9104/27/2018 - Abdiel RicardoI48.92 Unspecified atrial flutterNew Medication:Walker With A Platform - R60.0 Localized pljdxJ71.83 Other xdydouuO82.9 Nonrheumatic mitral valve disorder, igkihpcwzhpT19.9 Heart failure, unspecifiedComments:Xray in this office showed fluid in lungs bilaterallyFollow up:Referred to [facility] ER.J90 Pleural effusion, not elsewhere classified
--- OUTSIDE RECORDS SUMMARY | 2018-05-06 11:31 | XMS REPORT | Continuity of Care Document ---
:1940 External Reference #:[id number] Author Name Garland Funez M.D. Address [address] [place] [address] [address] [place] [address] Care Team Providers Name Role Phone HCP/LW on file Primary Care Physician Unavailable Payers Type Date Identification Numbers Payment Provider Subscriber Effective: Policy Number: [id number] [facility] Courtney Brooks 02/01/2007 Services PayID: [id number] [address] [place] [address] Effective: 07/04/1996 Policy Number: [place] Ind/Ppo/Hmo/Pos Courtney Brooks [id number] PayID: [id number] [address] [address] [place] [address] Advance Directives Description No Information Available Problems [...] Marital Status 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 Tobacco Use Reviewed: Never Smoked Cigarettes 12/14/16 Smoking Status Reviewed: Never Smoked Cigarettes 12/14/16 ETOH Use 12/14/2016 Current Alcohol Use: "a couple glasses a Daily day" of wine (total ~16oz/day) and has been doing this for a long time Exercise Type/Frequency 12/14/2016 Exercises regularly incl swimming, pickle ball, lots of walking, gardening Age 1st [place] 21 Years Old Allergies, Adverse Reactions, Alerts Date Description Reaction Status Severity Comments 11/15/2016 Cardizem Active photo dermatitis 11/15/2016 Ampicillin Active itching 11/15/2016 Tramadol Active itching 11/15/2016 Vancomycin Active itching 03/21/2018 Keflex Active itching 03/21/2018 Doxycycline Active blisters Medications Medication Date Status Form Strength Qnty SIG Indications Ordering Provider Hydroxyzine HCL 04/15/ Active Tablets 25mg 45tabs 1-2 tabs by L50.9 Dee Dee, 2018 mouth q-6 Garland, hours for M.D. rash, can cause drowsiness. Amiodarone HCL 04/12/ Active Tablets 400mg take 1 tab I48.92 Unknown 2018 po 3x/day for 3 days. Then 400 mg 2x/day for 7 days, then 1/2 tab twice daily Warfarin Sodium 04/12/ Active Tablets 1mg as directed Unknown 2017 Antioxidant 04/12/ Active Capsules one cap po Unknown 2018 daily Metoprolol 10/ Active Tablets 25mg take 1/2 Unknown Tartrate 2018 tablet by mouth twice a day Aspirin Adult 04/12/ Active Tablets DR 81mg 1 by mouth Unknown Low Dose 2018 every day Sertraline HCL 02/14/ Active Tablets 100mg 90tabs 1 by mouth F41.1 Dee Dee, 2018 every day Garland for mood M.D. Timolol Maleate 02/10/ Active GFS 0.5% 1 drop to [place] Ophthalmic Gel 2018 the Left , Forming eye daily Luz Elena connor MD Latanoprost 10/25/ Active Solution 0.005% Instill 1 Unknown 2017 Drop In Each Eye AT Bedtime Furosemide 10/10/ Hx Tablets 40mg one tab Unknown 2018 - daily for 5 2018 Potassium 10/10/ Hx Tablets ER 20Meq one tab po Unknown Chloride Jerrica 2018 - x 5 days ER 2017 Vitamin B 03/26/ Hx Capsule 1 by mouth Unknown Complex 2018 - once daily 2017 Metoprolol 03/13/ Hx Tablets ER 25mg 25mg qd to Davidenko Succinate ER 2017 - 24HR lower pulse , Darrel, 2017 Eliquis 03/13/ Hx Tablets 5mg bid Davidenko 2018 - , Darrel, 2017 Cephalexin 03/12/ Hx Capsules 500mg 28caps 1 capsule L03.115 Unknown 2017 - by mouth 03/19/ every 6 2018 hours for skin infection on leg Triamcinolone 02/20/ Hx Cream 0.1% 80gm apply to R21 Sangitacocharly, Acetonide 2018 - affected Garland, on M.D. 2018 arms and legs 2x/day [...] - Hx Tablets 1 by mouth G47.62 Sangitacoff, 03/20/2018 once daily Garland, for muscle M.D. cramps; stop after a couple of months if not helpful Acetaminophen 06/08/2017 - Hx Tablets 500mg 2 by mouth M25.50 Dee Dee, Extra Strength 03/12/2018 up to Garland, 4x/day as M.D. needed for pain Actonel 12/13/2016 - Hx 1 weekly M85.80 Unknown 12/14/2016 Multivitamin 11/14/2016 - Hx Tablets 1 capful Unknown Adult 04/14/2018 daily [place] 3 11/14/2016 - Hx Capsules daily Unknown [...] CPT Code Status Date Vaccine Lot # [id number] Given 03/13/2018 Influenza Vaccine Split Virus Preservative Free Im [id number] Use 14512 Given 03/11/2018 Adacel or Boostrix, TDaP 96361 Given 06/08/2017 Pneumococcal Immunization [id number] 06911 Given 04/07/2017 Influenza Virus Vaccine, Quadrivalent, Split, [id number] Preservative Free 70587 Given 05/15/2015 Prevnar 13 46607 Given 11/05/2009 Zostavax 82592 Given 05/05/2009 Adacel or Boostrix, TDaP Vital Signs Date Vital Result Comment 04/15/2018 10:20am BP Systolic 120 mmHg BP [...] Date Facility Test Result H/L Range Note Protime W/ Inr(Add 04/14/2018 [facility] #Prothrombin Time <pending> V58.61) #International Normalized 2.4 Basic Metabolic Panel 03/27/2018 [facility] Sodium 132 mmol/L Low 135 -145 [phone] Chloride 98 mmol/L Low 101-111 Co2 Carbon Dioxide 27 mmol/L 22-32 Glucose 83 mg/dL 70-100 Blood Urea Nitrogen 19 mg/dL 6-24 Creatinine 0.85 mg/dL 0.51-0.95 BUN/Creatinine Ratio 22.4 High 8-20 Calcium 9.5 mg/dL 8.6-10.3 Egfr Non- 65.0 >60 Egfr 78.7 >60 1 Potassium 5.2 mmol/L High 3.5-5.0 Anion Gap 7 mmol/L 2-11 Laboratory test 03/21/2018 [facility] Body Fluid None Seen None Seen 2 finding [phone] Crystals CBS W/Automated 03/11/2018 [facility]. White Blood 5.2 K/uL 3.1-10.7 3 Diff LABORATORY Count [phone] Red Blood Count 3.58 M/uL Low 3.90-5.40 [...] 40.4-72.8 Lymph % 17.9 % Low 20.0-42.0 [place] % 6.9 % 4.3-13.2 Eo% 1.5 % 0.0-6.6 Bas% 0.4 % 0.0-1.1 Neut# 3.80 K/uL 1.8-7.0 Lymph # 0.93 K/uL Low 1.0-4.0 [place] # 0.36 K/uL 0.3-0.9 Eos # 0.08 K/uL 0.0-0.5 Baso # 0.02 K/uL 0.0-0.1 Comprehensive Metabolic 03/11/2018 [facility] Glucose 97 mg/ dL 74-106 Panel LABORATORY [phone] BUN 15 mg/dL 7-18 Creatinine 0.8 mg/dL [...] Phosphatase 77 U/L 45-117 Laboratory test 03/11/2018 [facility] C-Reactive 34.1 High < 3.0 finding LABORATORY Protein,Quant mg/L [phone] Creatinine 02/14/2018 [facility] Creatinine 0.83 0.51-0.9 [phone] mg/dL 5 Egfr Non- 67.0 >60 Egfr 81.1 >60 5 Basic Metabolic Panel 01/31/2018 [facility] Glucose 94 mg/dL 74-106 6 LABORATORY [phone] BUN 34 mg/dL High 7-18 Creatinine 1.7 mg/dL High 0.6-1.3 Glom Filtration Rate, Estimate 31 mL/min >60 If 38 mL/min >60 7 BUN/Creat 20.0 ratio Sodium 136 mmol/L 136-145 Potassium 3.9 mmol/L 3.5-5.1 Chloride 100 mmol/L 98-107 Carbon Dioxide 26 mmol/L 21-32 Anion Gap 10 mEq/L 8-16 Calcium 8.3 mg/dL Low 8.5-10.1 CBC 01/31/2018 [facility] White Blood Count 5.1 K/uL 3.1- 10.7 LABORATORY [phone] Red Blood Count 3.21 M/uL Low 3.90-5.40 Hemoglobin 10.8 gm/dL Low 11.6-15.8 Hematocrit 31.8 % Low 36.0-46.1 Mean Cell Volume 99.1 fl High 80.9-99.0 Mean Corpuscular HGB 33.6 pg High 25.9-32.7 Mean Corpuscular HGB Conc 34.0 g/dL 30.8-34.3 Platelet Count 202 K/uL 155-360 Red Cell Distri Width %CV 12.6 % 11.7-14.4 Mean Platelet Volume 9.7 fL 8.9-12.4 Aot Request 01/31/2018 [facility] Aot Request Test(s) added 8 LABORATORY [phone] Tests to be added: LFT's Aot Request 01/31/2018 [facility] Aot Request Test(s) added 9 LABORATORY [phone] Tests to be added: troponin CBS W/Automated 01/30/2018 [facility] White Blood 3.2 K/uL 3.1-10.7 Diff LABORATORY Count [phone] Red Blood Count 4.01 M/uL 3.90-5.40 Hemoglobin [...] % 40.4-72.8 Lymph % 27.0 % 20.0-42.0 [place] % 6.8 % 4.3-13.2 Eo% 3.1 % 0.0-6.6 Bas% 1.2 % High 0.0-1.1 Neut# 1.99 K/uL 1.8-7.0 Lymph # 0.87 K/uL Low 1.0-4.0 [place] # 0.22 K/uL Low 0.3-0.9 Eos # 0.10 K/uL 0.0-0.5 Baso # 0.04 K/uL 0.0-0.1 Laboratory test 01/30/2018 [facility] Troponin-I 0.030 ng/mL 10 finding LABORATORY [phone] Laboratory test 01/30/2018 [facility] Act Partial > 150.0 High 23.4- 11 finding LABORATORY Thrombo Time seconds 35.0 [phone] Laboratory test 01/30/2018 [facility] Troponin-I 0.044 ng/mL 12 finding LABORATORY [phone] CBS W/Automated 01/29/2018 [facility]. White Blood 4.4 K/uL 3.1-1 13 Diff LABORATORY Count 0.7 [phone] Red Blood Count 3.68 M/uL Low 3.90-5.40 [...] % 40.4-72.8 Lymph % 26.6 % 20.0-42.0 [place] % 6.8 % 4.3-13.2 Eo% 3.6 % 0.0-6.6 Bas% 0.7 % 0.0-1.1 Neut# 2.77 K/uL 1.8-7.0 Lymph # 1.18 K/uL 1.0-4.0 [place] # 0.30 K/uL 0.3-0.9 Eos # 0.16 K/uL 0.0-0.5 Baso # 0.03 K/uL 0.0-0.1 Aot Request 01/29/2018 [facility]. Aot Request Test(s) added 14, 15 LABORATORY [phone] Tests to be added: Lipase Aot Request 01/29/2018 [facility] Aot Request Test(s) added 16, 17 LABORATORY [phone] Tests to be added: BNP, D-Dimer, CP <SEE NOTE> 18 Laboratory 01/29/2018 [facility] D-Dimer, 3.35 ug/mL High 19 test finding LABORATORY Quantitative [phone] Hepatitis 01/29/2018 [facility] Hepatitis A Negative Negative Evaluation LABORATORY Antibody IgM [phone] HBsAg Screen [Ref Lab] Negative Negative Hepatitis B Core IgM Negative Negative HCV Signal/Cutoff ratio < 0.1 s/corat 0.0-0.9 20 Laboratory test 01/29/2018 [facility] Troponin-I 0.050 ng/mL 21 finding LABORATORY [phone] Urine Micro Inhouse 12/16/2017 In House Ua WBC - Ua RBC - Ua Casts - Ua Epi - Ua Other - Ua Glucose - Ua Bilirubin - Ua Ketones - Ua Specific [place] 1.010 Ua Blood - Ua PH 5.0 Ua Protein - Ua Urobilinogen - Ua Nitrite - Ua Leukocytes - Creatinine Clearance 12/07/2017 [facility] Urine Collection Time 24 hr [phone] Urine Total Volume 1750 mL Urine Random Creatinine 45.68 mg/dL Creatinine 0.97 mg/dL High 0.51-0.95 Creatinine Clearance 57 mL/min Low 88-128 Iron & Iron Binding Capacity 06/13/2017 [facility] Iron 89 g/dL 50 -212 [phone] Unsaturated Iron Binding 297 g/dL Total Iron Binding Capacity 386 g/dL 250-450 % Iron Saturation 23 % 15-55 Laboratory test 06/13/2017 [facility] Phosphorus 4.5 mg/dL 2.5-5.0 finding [phone] Pthi 06/13/2017 [facility] Calcium (PTH 10.3 mg/dL 8.6-10.3 [phone] Intact) PTH Intact 2.0 pmol/L 1.3-9.3 Laboratory test 06/13/2017 [facility] Vitamin D 69.6 ng/mL High 20- 50 finding [phone] Total 25(Oh) CBC Auto Diff 06/13/2017 [facility] White Blood 3.6 10^3/uL 3.5- 10.8 [phone] Count Red Blood Count 3.57 10^6/uL Low [...] 0-2 Nucleated Red Blood Cells % 0.2 Creatinine Clearance 06/13/2017 [facility] Creatinine 1.14 mg/dL High 0.51-0.95 [phone] Urine Collection Time 24 Urine Total Volume 1300 mL Urine Random Creatinine 56.27 mg/dL Creatinine Clearance 45 mL/min Low 88-128 Basic Metabolic Panel 06/13/2017 [facility] Sodium 138 mmol/L 133- 145 [phone] Potassium 5.0 mmol/L 3.5-5.0 Chloride 105 mmol/L [...] 5 Kidney failure <15 (or dialysis) 2 [id number] What is the body fluid source?: Synovial [...] JOSE ANTONIO Miller AT 1036 01/30/18 by LAB.DIOGENES OKAY TO DRAW AT 740 AM WITH [...] Instructions: 18 BNP, D-Dimer, CPK, CRP 19 <=0.49 ug/mL - Low likelihood of DIC, DVT or Pulmonary Embolism >0.49 ug/mL - Additional testing should be done to rule out DIC, DVT, or Pulmonary embolism as clinically indicated. ([facility] has established a 97.89% negative predictive value for thrombotic disease when a cutoff value of 0.5 ug/mL is used.) 20 INFCE Result Units: s/co ratio Negative: < 0.8 Indeterminate: 0.8 - 0.9 Positive: > 0.9 The CDC recommends that a positive HCV antibody result be followed up with a HCV Nucleic Acid Amplification test (513468). Performed at: RN - [facility] [address] [id number] Wildlife Officer: Emily Lackey MD, Phone: [phone] 0.0 - 0.045 ng/mL: Normal 0.046 - 0.5 ng/mL: Suggestive 0.6 - 1.5 ng/mL: Consistent 22 Because ethnic data is not always [...] (or dialysis) Procedures Date Code Description Status 03/21/2018 06546 X-Ray Knee, Complete Completed 03/21/2018 26971 Inject/Drain Joint/Bursa Major Completed 12/03/2007 [id number] Colonoscopy Completed Encounters Type Date Location Provider Dx Diagnosis Office Visit 03/27/2018 3:00p Main Office Abdiel [...] D F41.1 Generalized anxiety disorder Z79.899 Other terminologist (current) drug therapy Office Visit 06/08/2017 2:00p [...] Encntr for oth proc for purpose oth [facility] Z71.89 Other specified counseling Office Visit 12/14/2016 11:15a Main Office Garland Funez, M85.80 Oth disrd of bone M.DLaura density and structure, unspecified site N18.3 Chronic kidney disease, stage 3 (moderate) I10 Essential (primary) hypertension F41.1 Generalized anxiety disorder D46.9 Myelodysplastic syndrome, unspecified Z71.89 Other specified counseling Plan of Treatment Future Appointment(s):04/19/2018 3:30 pm - Garland Funez M.D. at Main Neigll8806/20/2018 1:30 pm - Garland Funez M.D. at Main Qqdcew1204/15/2018 - Abdiel RicardoR60.0 Localized edemaComments:Called [facility], got director of flight operations PA. Discussed that appears to be a medication related urticaria. Discussed meds can possibly d/c. Will start with potassium and furosemide. still had significant a-fib so not advised to stop that at this timediscussed that pt should stay on Warfarin for the next month. If seems that will need a trial off of this med, will need to work through cardiologists. He advised that hydroxyzine (or diphenhydramine) would be ok for treatment.My concern is that in reviewing likely drug reactions listed for each of her new medications, warfarin seemed mostly likely the cause of the urticaria.Follow up:stop potassium temporarily stop the furosemide call me anytime with questions, call me tomorrow with update [phone] (cell) or: [phone] (home) ( Addedum: I called pt 11:00 tuesday. Doing much better, see triage.)I34.9 Nonrheumatic mitral valve disorder, unspecifiedComments:Due to the recent surgery and d/c and med changes, cardiology office was ozmlnjrlhC47.9 Urticaria , unspecifiedNew Medication:Hydroxyzine HCL 25 mg - 1-2 tabs by mouth q-6 hours for rash, can cause drowsiness.I48.92 Unspecified atrial flutterFollow up: continue amiodarone
[2018-05-06 12:37] VITALS: BP 125/67
--- NOTE | 2018-05-06 12:49 | UC ---
Lower Extremity/Ankle HPI - HPI Summary HPI Summary: awoke in night with pain in the left heel and forefoot. One month ago had heart valve repair, has been doing PT in the home. Yesterday did 6 pound ankle weights with leg extensions, toe raises and resistance work. No swelling, has not used analgesics, has not used ice. Concerned about having a set back in her rehab. - History of Current Complaint Chief Complaint: UCLowerExtremity Stated Complaint: LT FOOT CONCERN Time Seen by Provider: 05/06/18 12:38 Hx Obtained From: Patient Onset/Duration: Sudden Onset, Lasting Hours - about 12 Severity Currently: Moderate Pain Intensity: 5 Aggravating Factor(s): Standing, Ambulation Alleviating Factor(s): Rest - Risk Factors Gout Risk Factors: Negative DVT Risk Factors: Negative Septic Arthritis Risk Factor: Negative - Allergies/Home Medications Allergies/Adverse Reactions: Allergies Allergy/AdvReac Type Severity Reaction Status Date / Time ampicillin Allergy Itching Verified 05/06/18 13:07 diltiazem Allergy photo Verified 05/06/18 13:07 dermatitis doxycycline Allergy light Verified 05/06/18 12:10 sensitivity furosemide Allergy Hives Verified 05/06/18 12:10 tramadol Allergy Itching Verified 05/06/18 13:07 vancomycin Allergy Itching Verified 05/06/18 13:08 Home Medications: Home Medications Amiodarone HCl 400 mg PO QAM 05/06/18 [History Confirmed 05/06/18] Metoprolol Tartrate 1 dose PO DAILY 05/06/18 [History Confirmed 05/06/18] Timolol 0.25% OPHTH.SOLN* [Timoptic Ophth.soln 0.25%] 1 drop LEFT EYE QAM [History Confirmed 05/06/18] Torsemide 3 tab PO DAILY 05/06/18 [History Confirmed 05/06/18] Warfarin TAB(*) [Coumadin TAB(*)] 0 mg PO 1700 05/06/18 [History Confirmed 05/06] PMH/Surg Hx/FS Hx/Imm Hx Cardiovascular History: Other - valvular heart disease. Other Cardiovascular History: valve disease - Surgical History Surgical History: Yes Surgery Procedure, Year, and Place: Cholecystectomy-2000; MV repair 04/03/18, [facility] Colon resection ( diverticulitis)-2001 Partial Hysterectomy-1987 Bilat Carpal tunnel-2002, Rt hip replacement-2003. right knee arthroscopy, 1985, [facility]. tonsilectomy; right rotator cuff November 2016 - Social History Occupation: Retired Lives: With Family Alcohol Use: None Alcohol Amount: 2 glaases of wine Substance Use Type: None Smoking Status (MU): Never Smoked Tobacco Have You Smoked in the Last Year: No - Immunization History Most Recent Tetanus Shot: unkown Hx Tetanus, Diphtheria Vaccination: No Vaccination Up to Date: Yes Review of Systems Constitutional: Negative Cardiovascular: Other - recuperating well post valve repair. Recent change of diuretic, possible overdiuresis. Weight decreased ? 20 pounds following use of torsemide on 04/27 Musculoskeletal: Myalgia Neurological: Negative Psychological: Negative Is Patient Immunocompromised?: No All Other Systems Reviewed And Are Negative: Yes Physical Exam Triage Information Reviewed: Yes Appearance: Well-Appearing, Thin Vital Signs: Initial Vital Signs Temp 98.2 F 05/06/18 12:24 Pulse 63 05/06/18 12:24 Resp 20 05/06/18 12:24 BP 125/67 05/06/18 12:24 Pulse Ox 100 05/06/18 12:24 Respiratory: Positive: Lungs clear, Normal breath sounds Cardiovascular: Positive: RRR, No Murmur Musculoskeletal Exam: Other - Tender to palpation Achilles tendon and posterior heel. No erythema, warmth, swelling of joints of foot. No tenderness to palpation along MTP joints--pain only with weight bearing. Musculoskeletal: Positive: ROM Intact - knee and ankle., No Edema, Other: - Negative Oumar's, no calf tenderness or swelling. Psychological Exam: Normal Skin Exam: Normal Lower Extremity Course/Dx - Course Course Of Treatment: ice, acetaminophen for treatment of tendon strain secondary to exercises. - Differential Dx/Diagnosis Differential Diagnosis/HQI/PQRI: Contusion, Sprain, Strain, Tendonitis Provider Diagnoses: Achilles tendonitis, foot strain secondary to exercise. Discharge - Sign-Out/Discharge Documenting (check all that apply): Patient Departure All imaging exams completed and their final reports reviewed: No Studies - Discharge Plan Condition: Stable Disposition: HOME Patient Education Materials: Tendinitis (ED) Referrals: Garland Funez MD [Primary Care Provider] - Additional Instructions: Use ice on the left heel for 10 minutes every 2 to 3 hours today. Use acetaminophen for control of pain. Continue to move your ankle through a range of motion. You have evidence of tendon strain, and rest and ice should help to relieve this. Your physical therapist can work with you on Tuesday to modify exercises to prevent further pain. - Billing Disposition and Condition Condition: STABLE Disposition: Home
== END 2018-05-06 13:19 | disposition home or self-care (01) ==
LOC: UCCORT 11:04
DX: M76.62 Achilles tendinitis, left leg (principal); S96.912A Strain of unspecified muscle and tendon at ankle and foot level, left foot, initial encounter; Z88.0 Allergy status to penicillin; Z88.8 Allergy status to other drugs, medicaments and biological substances; Z88.1 Allergy status to other antibiotic agents; Z88.6 Allergy status to analgesic agent; Z79.01 Long term (current) use of anticoagulants; X50.3XXA Overexertion from repetitive movements, initial encounter; Y93.B9 Activity, other involving muscle strengthening exercises; Y92.9 Unspecified place or not applicable
CPT/HCPCS: 99212; G0463

== ENCOUNTER 2018-11-17 12:22 | Emergency (ER) | payer MEDICARE, BC ==
[2018-11-17 12:49] VITALS: BP 151/80
--- NOTE | 2018-11-17 13:44 | UC ---
Skin Complaint HPI - HPI Summary HPI Summary: 78-year-old female who has a tick embedded in her left groin area which she thinks has been there either 2 or possibly 3 days. - History of Current Complaint Chief Complaint: UCSkin Time Seen by Provider: 11/17/18 13:44 Stated Complaint: SKIN CONCERN-TICK Hx Obtained From: Patient ?: No Onset/Duration: Sudden Onset, Other - Patient thinks the tick may have been embedded for 2 or 3 days. Skin Exposure Onset/Duration: Days Ago Timing: Constant Onset Severity: Mild Current Severity: Mild Pain Intensity: 0 Location: Other - Left groin Character: Pruritus Aggravating Factor(s): Nothing Alleviating Factor(s): Nothing Related History: Possible Reaction to: Insect - Allergy/Home Medications Allergies/Adverse Reactions: Allergies Allergy/AdvReac Type Severity Reaction Status Date / Time ampicillin Allergy Itching Verified 11/17/18 12:49 diltiazem Allergy photo Verified 11/17/18 12:49 dermatitis furosemide Allergy Hives Verified 11/17/18 12:49 tramadol Allergy Itching Verified 11/17/18 12:49 vancomycin Allergy Itching Verified 11/17/18 12:49 Home Medications: Home Medications Apixaban* [Eliquis*] 5 mg PO 11/17/18 [History] Levothyroxine TAB* [Synthroid TAB*] 25 mcg PO 0800 11/17/18 [History Confirmed 11/17/18] PMH/Surg Hx/FS Hx/Imm Hx Previously Healthy: Yes Cardiovascular History: Hypertension, Myocardial Infarction - Surgical History Surgical History: Yes Surgery Procedure, Year, and Place: Cholecystectomy-2000 Colon resection (diverticulitis)-2001 Partial Hysterectomy-1987 Bilat Carpal tunnel-2002, Rt hip replacement-2003. right knee arthroscopy, 1985, [facility]. tonsilectomy - Family History Known Family History: Positive: Non-Contributory - Social History Occupation: Retired Alcohol Use: Daily Alcohol Amount: 2 glaases of wine Substance Use Type: None Smoking Status (MU): Never Smoked Tobacco Have You Smoked in the Last Year: No - Immunization History Most Recent Tetanus Shot: unkown Review of Systems All Other Systems Reviewed And Are Negative: Yes Skin: Positive: Other - Tick is embedded and left groin for the past 2 or 3 days. Is Patient Immunocompromised?: No Physical Exam Triage Information Reviewed: Yes Appearance: Well-Appearing, No Pain Distress, Well-Nourished Vital Signs: Initial Vital Signs Temp 97.9 F 11/17/18 12:44 Pulse 55 11/17/18 12:44 Resp 18 11/17/18 12:44 BP 151/80 11/17/18 12:44 Pulse Ox 100 11/17/18 12:44 Vital Signs Reviewed: Yes Musculoskeletal Exam: Normal Neurological Exam: Normal Psychological Exam: Normal Skin: Positive: Other - Patient has a tick embedded in the left groin area. It was removed successfully using the tick twister and the patient tolerated procedure well. Course/Dx - Course Course Of Treatment: Patient has been comfortable here. She will give be given the prophylactic dose of doxycycline 200 mg. She had originally stated that may be an allergy however she states it only makes her light sensitive if she takes a course of that. She is to follow-up with her primary care provider if any signs of Lyme disease which were given to the patient in her discharge instructions. - Diagnoses Provider Diagnosis: Tick bite of groin Discharge - Sign-Out/Discharge Documenting (check all that apply): Patient Departure All imaging exams completed and their final reports reviewed: No Studies - Discharge Plan Condition: Good Disposition: HOME Prescriptions: DOXYcycline CAP(*) [DOXYcycline 100MG CAP(*)] 100 mg PO DAILY 1 Days #2 cap Patient Education Materials: Tick Bite (ED) Referrals: Garland Funez MD [Primary Care Provider] - Additional Instructions: Follow-up with your primary care provider if you develop any signs of fever, chills, joint aches or rash on her body. No dairy products, antacids or multivitamins 2 hours before you take the doxycycline and 2 hours after you take the doxycycline however be sure and take the doxycycline with food. - Billing Disposition and Condition Condition: GOOD Disposition: Home
== END 2018-11-17 13:58 | disposition home or self-care (01) ==
LOC: UCCORT 12:22
DX: S30.861A Insect bite (nonvenomous) of abdominal wall, initial encounter (principal); I10 Essential (primary) hypertension; I25.2 Old myocardial infarction; Z88.0 Allergy status to penicillin; Z88.1 Allergy status to other antibiotic agents; Z88.5 Allergy status to narcotic agent; Z88.8 Allergy status to other drugs, medicaments and biological substances; W57.XXXA Bitten or stung by nonvenomous insect and other nonvenomous arthropods, initial encounter; Y92.9 Unspecified place or not applicable
CPT/HCPCS: 99212; G0463